=== PATIENT | female | born 1950 | race Caucasian/White ===

== ENCOUNTER → 2018-09-29 | Outpatient (CLI) | payer MEDICARE ==
--- NOTE | 2018-09-30 13:02 | CTL ---
EXAMINATION TYPE: CT Low Dose Lung DATE OF EXAM ORDERED: 09/29/2018 HISTORY: Personal history of tobacco abuse. Lung cancer screening CT DLP: 38.[address] CTDI: 1.0 mGy Automated exposure control for dose reduction was used. SCREENING VISIT: Initial COMPARISON: None TECHNIQUE: Low dose computed tomography scan was performed through the chest at 1 mm thick sections a nd reconstructed images in the coronal plane at [address] DIAGNOSTIC QUALITY: Satisfactory FINDINGS: LUNG NODULES: There is an elongated tubular density with peripheral reticulation best seen on coronal series 10 low ge 13 but measured in 2 dimensions on axial series 4 image 177 measuring up to 7 x 5 mm. In the longi tudinal dimension this measures 18 mm. On coronal imaging this appears again tubular parent is favore d to represent endobronchial mucous plugging with vague possible bronchitis seen on coronal image 14. No additional suspicious nodular densities are seen within the lungs. LUNGS: COPD: Severity: Mild Fibrosis: Severity: Biapical pleural parenchymal scarring and medial left lung base pleural parenchym al scarring Lymph nodes: Nonenlarged RIGHT PLEURAL SPACE: Effusion: None Calcification: None Thickening: None Pneumothorax: None LEFT PLEURAL SPACE: Effusion: None Calcification: None Thickening: None Pneumothorax: None HEART: Heart Size: Nonenlarged Coronary calcification: None appreciable Pericardial effusion: None OTHER FINDINGS: Upper abdomen: Cholelithiasis is incidentally seen as well as punctate nonobstructing 2 mm left renal calculus. There is a hypoattenuated ill-defined hepatic mass measuring 3.3 x 2.2 cm on image 243 of series 3. The liver appears enlarged. Bony thorax: There is partial visualization of a chondroid matrix right humeral medullary lesion like ly representing a bone infarct or enchondroma. Sclerotic lesion of the scapula is also present measur ing 1.1 cm, that may represent a bone island. Mild multilevel degenerative changes of the spine. Supraclavicular region: Unremarkable IMPRESSION: 1. Lung RADS 4A/S-findings for which additional diagnostic testing or tissue sampling is recommended . There is an elongated tubular density within the right lower lobe that is favored to represent endo bronchial mucus impaction however short-term follow-up CT is recommended in 3 months to assess for an y interval growth. Alternatively bronchoscopy could be considered or PET/CT if there is interval grow th on the subsequent follow-up short-term CT. 2. Hypoattenuated 3.3 cm hepatic mass for which three-phase CT abdomen is recommended for further erick luation. 3. Partial visualization of a chondroid matrix right humeral lesion favored to represent a bone infar ct or enchondroma however correlation with plain films is recommended. FOLLOW UP CT CHEST RECOMMENDATION: Low-dose CT in [address] LUNG RAD: Lung-Rad 4A Suspicious
== END | disposition home or self-care (01) ==
LOC: RADCTMAIN 16:25
PROVIDERS: ATTEND Internal Medicine
DX: Z12.2 Encounter for screening for malignant neoplasm of respiratory organs (principal); F17.210 Nicotine dependence, cigarettes, uncomplicated

== ENCOUNTER → 2021-12-19 | Outpatient (CLI) | payer MEDICARE ==
--- NOTE | 2021-12-19 09:46 | CT ---
EXAMINATION TYPE: CT pelvis wo con DATE OF EXAM: 12/19/2021 COMPARISON: None HISTORY: 68-year-old female M25.551, Z96.641, hip fracture x 8 months, pain TECHNIQUE: Contiguous axial scanning of the pelvis without IV contrast. Coronal and sagittal reconstr uctions performed. CT DLP: 405 mGycm Automated exposure control for dose reduction was used. FINDINGS: Uterus with calcified fibroids demonstrated. Largest calcified fibroid measuring 3.9 cm and is intram ural. Exophytic posterior fibroid measures 2.5 cm. There is some pelvic floor laxity and with laxity of the levator ani musculature. Mild to moderate prostatic calcifications distal abdominal aorta exte nding into the proximal bilateral common iliac arteries. Ovaries not well delineated due to adjacent bowel loops. Bilateral iliac vein stents are noted. Osteopenia. There is facet arthropathy lower lumbar spine. Disc bulge L4-L5 may contribute to a moder ate to severe focal spinal canal stenosis. There appears to be a L4 vertebral compression deformity w hich should be correlated clinically as to age. There is a dynamic right hip screw fixation. There is complication with nonunion across the femoral n bettye fracture. The tip of the hip screws have eroded the femoral head fracture fragment (coronal image 49) and currently abuts the lateral roof of the acetabulum where some erosion is also demonstrated, coronal image 47. IMPRESSION: 1. RIGHT HIP SCREW FIXATION COMPLICATED BY NONUNION ACROSS THE FEMORAL NECK. THERE IS CONTINUED MOTIO N AT THE FRACTURE SITE WITH THE TIPS OF THE HIP SCREWS ERODING INTO THE FEMORAL HEAD FRACTURE FRAGMEN T AND CURRENTLY ABUTTING AND SLIGHTLY ERODING THE LATERAL ROOF OF THE ACETABULUM WELL. 2. THERE APPEARS TO BE AN L4 VERTEBRAL COMPRESSION COLLAPSE PARTIALLY VISUALIZED. POSSIBLE MODERATE S NICOLAS CANAL STENOSIS AT L3-L4 AND POSSIBLE MODERATE TO SEVERE AT L4-L5.
== END | disposition home or self-care (01) ==
LOC: RADCTMAIN 08:35
PROVIDERS: ATTEND Orthopaedic Surgery
DX: T84.84XA Pain due to internal orthopedic prosthetic devices, implants and grafts, initial encounter (principal)
CPT/HCPCS: 72192; 85652; 86140

== ENCOUNTER 2022-01-11 08:48 | Day surgery (SDC) | payer MEDICARE ==
[2022-01-11 09:07] VITALS: RESP 16; TEMP 97.8
[2022-01-11 10:38] VITALS: BP 132/78; PULSE 80
--- NOTE | 2022-01-11 15:59 | US ---
EXAMINATION TYPE: US guided asp major joint, right hip DATE OF EXAM: 01/11/2022 Comparison: Correlation CT 12/19/2021 Clinical History: 71-year-old female M25.551,Z96.641,T84.84XA Procedure: 1. Ultrasound of the right hip. 2. Aspiration of the right hip with ultrasound guidance. Findings: There is underlying granulation tissue versus synovitis and joint effusion at the patient's femoral n bettye nonunion site right hip. This is targeted for aspiration. Technique: The procedure, risks, and alternatives, were discussed with the patient, who requested ramón t we proceed. The consent form was signed, and teach-back occurred. The site/side of the procedure wa s marked with a line with participation by the patient. The accompanying paperwork was verified for c onsistency. A directed history and physical exam was performed prior to the procedure. Medication rec onciliation was performed by ancillary personnel. A critical pause was performed with assisting joel rubin just prior to the procedure and the patient's identity was confirmed using 2 identifiers. Imagin g guidance was utilized to select the precise skin entry point just prior to the procedure, anterior right hip. The right hip was prepped and draped in the usual sterile fashion and local 1% lidocaine anesthesia w as instilled. Under ultrasound guidance, an 18 gauge spinal needle was introduced into the right hip joint. Ultrasound confirmed the position of the needle tip. Aspiration yielded approximately 2 mL of clear, yellow-tinged synovial fluid. This was labeled and sent for laboratory analysis. The needle was then removed. The patient tolerated the procedure well. There were no immediate complications. After the procedure, the patient's condition was unchanged. Es timated blood loss was minimal. The patient was instructed on routine postprocedure precautions, incl uding avoiding water on the area for the next 24 hours and avoiding soaking the area for the next 2 d ays. IMPRESSION: Successful ultrasound guided right hip aspiration with 2 mL of clear, yellow-tinged synovial fluid ob tained. Laboratory analysis pending.
[2022-01-11 20:40] LABS: Appearance,BF Slightly Cloudy
== END 2022-01-11 10:25 ==
LOC: RADPROMAIN 08:48
PROVIDERS: ATTEND Orthopaedic Surgery
DX: M25.451 Effusion, right hip (principal); T84.84XA Pain due to internal orthopedic prosthetic devices, implants and grafts, initial encounter; Z96.641 Presence of right artificial hip joint
CPT/HCPCS: 20611; 87070; 87075; 87102; 87205; 89050

== ENCOUNTER → 2022-01-19 | Outpatient (CLI) | payer MEDICARE ==
[2022-01-19 15:04] LABS: INR 0.9 (<1.2); Partial Thromboplastin Time 26.1 sec (22.0-30.0); Prothrombin Time 10.3 sec (9.0-12.0)
[2022-01-19 17:46] LABS: HCT 41.2 % (37.2-46.3); HGB 12.2 g/dL (12.0-15.0); MCH 26.3 pg (27.0-32.0); MCHC 29.6 g/dL (32.0-37.0); Mean Platelet Volume 12.2 fL (9.5-12.2); NRBC Per 100 WBC 0 /100 WBCS (0.0-0.0); Platelet Count 363 X 10*3/uL (140-440); RBC 4.63 X 10*6/uL (4.10-5.20); RDW 16.2 % (11.5-14.5); WBC 6.54 X 10*3/uL (4.50-10.00)
[2022-01-19 18:11] LABS: African American GFR (CKD) 111.6 (60.0-200.0); Albumin 4.9 g/dL (3.8-4.9); Albumin/Globulin Ratio 1.92 (1.60-3.17); Anion Gap 13.3 mmol/L (10.00-18.00); BUN/Creat Ratio 17.81 Ratio (12.00-20.00); Blood Urea Nitrogen 9.6 mg/dL (9.0-27.0); Calcium 10.4 mg/dL (8.7-10.3); Carbon Dioxide 25.1 mmol/L (20.0-27.5); Globulin 2.5 g/dL (1.6-3.3); Non-African American GFR(CKD) 96.3 (60.0-200.0); Potassium 4.9 mmol/L (3.5-5.5); Total Bilirubin 0.5 mg/dL (0.30-1.20); Total Protein 7.4 g/dL (6.2-8.2)
== END | disposition home or self-care (01) ==
LOC: LABWHC1 12:04
PROVIDERS: ATTEND Orthopaedic Surgery
DX: Z01.812 Encounter for preprocedural laboratory examination (principal); M16.11 Unilateral primary osteoarthritis, right hip
CPT/HCPCS: 36415; 80053; 85027; 85610; 85730; 87070; 93005

== ENCOUNTER 2022-01-24 13:04 | Inpatient (IN) | payer MEDICARE ==
[~2022-01-24 13:04] MED LIST: ACETAMINOPHEN TAB 500 MG TAB PO PRN; DEXAMETHASONE SOD PHOSPHATE 10 MG/ML 1 ML VIAL IV PRN; DEXAMETHASONE SOD PHOSPHATE 4 MG/ML 1 ML VIAL IV ONE; DOCUSATE 100 MG CAP PO PRN; FAMOTIDINE 20 MG/2 ML VIAL IVP PRN; HYDROmorphone 0.5 MG/0.5 ML SYRINGE IVP PRN; KETOROLAC 15 MG/ML 1 ML VIAL IVP PRN; LIDOCAINE 1% (10MG/ML) FOR IV START INTRADERMA PRN; MIDAZOLAM 2 MG/2 ML VIAL IV PRN; ONDANSETRON 4 MG/2 ML VIAL IVP ONE; ONDANSETRON 4 MG/2 ML VIAL IVP PRN; TRANEXAMIC ACID IN NACL,ISO-OS 1,000 MG in SALINE 1 100ML.BAG IVPB PRN; oxyCODONE ER 10 MG TAB.ER.12H PO PRN
[2022-01-24] MEDS ORDERED: LACTATED RINGERS 1,000 ML IV ONE ×3 (13:45→19:44)
[2022-01-24] MEDS ORDERED: PROPOFOL 10 MG/ML 20 ML VIAL IV ONE (16:28)
[2022-01-24] MEDS ORDERED: PHENYLEPHRINE-0.9% NACL SYG 1,000 MCG/10 ML SYRINGE ONE (16:28)
[2022-01-24] MEDS ORDERED: ALBUMIN HUMAN 5% (12.5gm) 250 ML BOTTLE IVPB ONE (16:28)
[2022-01-24] MEDS ORDERED: NEOSTIGMINE 1 MG/ML 10 ML VIAL ONE (16:28)
[2022-01-24] MEDS ORDERED: MIDAZOLAM 2 MG/2 ML VIAL ONE (16:28)
[2022-01-24] MEDS ORDERED: GLYCOPYRROLATE 0.2 MG/ML 2 ML VIAL ONE (16:28)
[2022-01-24] MEDS ORDERED: ROCURONIUM 10 MG/ML (5 ML VIAL) IV ONE (16:28)
[2022-01-24] MEDS ORDERED: LIDOCAINE 2% INJ 20 MG/ML (2 ML VIAL) ONE (16:28)
[2022-01-24] MEDS ORDERED: fentaNYL (PF) 50 MCG/ML 2 ML AMP ONE (16:28)
[2022-01-24] MEDS ORDERED: TRANEXAMIC ACID IN NACL,ISO-OS 1,000 MG/100 ML BAG ONE (16:28)
[2022-01-24] MEDS: ROPIVACAINE 246.25 MG, EPINEPHrine 0.5 MG, KETOROLAC (30 mg/mL) 30 MG, cloNIDine HCL/PF... MISCELLANE PRN ×10 (17:25→20:57)
[2022-01-24] MEDS ORDERED: VANCOMYCIN 1,000 MG VIAL MISCELLANE ONE (20:57)
--- NOTE | 2022-01-24 21:42 | FL ---
Intraoperative/procedural fluoroscopic services were provided. Total fluoroscopy time is 69 seconds w ith a total of 5 submitted images to PACS. Please see the operative/procedural note for further detai ls.
[2022-01-24] MEDS ORDERED: ONDANSETRON 4 MG/2 ML VIAL IVP PRN (21:53)
[2022-01-24] MEDS ORDERED: NALOXONE 0.4 MG/ML 1 ML VIAL IV PRN (21:53)
[2022-01-24] MEDS ORDERED: HYDROcodone/APAP 5-325MG 1 EACH TAB PO PRN (21:53)
[2022-01-24] MEDS ORDERED: HYDROmorphone 0.5 MG/0.5 ML SYRINGE IVP PRN ×3 (21:53)
[2022-01-24] MEDS ORDERED: hydrOXYzine pamoate 25 MG CAP PO PRN (21:53)
--- NOTE | 2022-01-24 22:01 | P.OP ---
Date of Procedure: 01/24/22 Preoperative Diagnosis: 1. Failed right hip fracture ORIF 2. Right hip osteoarthritis 3. Severe Osteopenia 4. Prolonged immobility and non-ambulatory status 5. Multiple Sclerosis 6. History of DVT/PE Postoperative Diagnosis: Same Procedure(s) Performed: 1. Right direct anterior total hip arthroplasty 2. Removal of hardware, right hip 3. Application of negative pressure dressing, incisional wound VAC (<50 sq cm), right hip (incision measured 15-cm) Implants: 1. [employer] Trident X3 36-mm polyethylene liner 2. [place] Accolade C Size #5 Femoral Stem, Standard Offset 3. Biolox delta femoral head, 36mm, +7.5 neck Anesthesia: GETA Surgeon: Gabino Jarrett Cut Out And Marking Machine Operator #1: Duke Peace Estimated Blood Loss (ml): 400 IV fluids (ml): 2,300 Urine output (ml): 230 Pathology: other (Multiple deep cultures) Condition: stable Disposition: PACU Indications for Procedure: I met with Mary preoperatively for a second opinion about her right hip. She underwent and ORIF of her right proximal femur ~14 months ago. She went on to develop hardware failure with lag screw cut and and collapse. As a result she was left with a shortened right leg, an inability to ambulate and severe right hip pain. Her xrays showed a Synthes femoral neck fracture system with lag screw cut out and erosion of the acetabulum from the lag screw. She also had SEVERE osteopenia. In addition to her hip pathology, she has MULTIPLE other medical co- morbidities including multiple sclerosis, DVT, PE, non-ambulatory status and prolonged immobility. We discussed continued observation which we both felt was not possible given the collapse of her fracture, damage from the lag screw and severe pain. We discussed different surgical options including hemiarthoplasty, total hip replacement, and hardware removal and performing a Girdlestone procedure. We decided to an attempt a total hip replacement with the possiblity of performing a hemiarthoplasty. She understands that she is at a VERY HIGH RISK of having a complication particularly fracture, hip dislocation and infection. She understands the possibility of being made worse. She also understands that if she develops a complication she may ultimately require a Girdlestone procedure. After having a very blunt discussion about the high risk of complication, the patient and her family elected to proceed with surgery. I spent a significant amount of time counseling the patient and her family about the risks and the procedure in general. They were well informed and aware of the significant risks in proceeding with surgery. I had a long discussion with the patient in the office on the potential risks and complications of an elective total hip replacement through a direct anterior approach. Risks discussed include, but are certainly not limited to, risks from anesthesia, superficial infection requiring local wound care or antibiotics, deep pop-prosthetic joint infection and the treatment required to eradicate infection, intraoperative fracture, postoperative periprosthetic fracture, damage to local blood vessels or nerves particularly the lateral femoral cutaneous nerve, delayed wound healing requiring local wound care or possibly surgical debridement, hip dislocation, leg length discrepancy, soft tissue irritation around the total hip implant such as iliopsoas tendinitis or trochanteric bursitis, wear and osteolysis from the implants, squeaking or audible noises, groin pain, thigh pain, heterotopic ossification, stiffness, aseptic loosening of the implants, dissatisfaction with surgical outcome, need for revision surgery, DVT, PE, swelling of the operative extremity, acute coronary event, stroke, failure to thrive, and possibly loss of life or limb. The patient understands that while these are the most common complications after an elective hip replacement there are certainly other less common complications possible. They were given ample time to ask questions regarding the potential complications of a hip replacement. Following our discussion the patient provided their verbal and written consent to go forward with an elective total hip replacement. Operative Findings: Preoperative exam under anesthesia: Significant leg length discrepancy with the right operative limb 2-3 cm shorter than the left Hardware removal: This distal interlocking screw of the plate/screw construct was cold-welded to the plate and couldn't be removed with screw drivers. The screw was removed by removing the screw head with a metal cutting tung. Total hip replacement: The patient had such severe osteopenia that almost made performing hip arthroplasty impossible. Retractors were extremely difficult to place as they were fracturing her bone. When placing a metal acetabular component, the anterior wall of the acetabulum. There were multiple fractures in the proximal femur, including from her prior injury, plate removal, trying to expose the femur and placing retractors. Her bone quality was so poor I didn't feel that placing cables and/or a claw plate over the trochanter would offer any meaningful stability. Post-op: The hip felt stable and her leg length discrepancy was improved, but s till short on the right. Sciatic nerve function was intact post-op. Description of Procedure: The patient was identified in the preoperative holding area and the correct hip was marked with my initials. I reviewed the procedure and consent with the patient. All of their questions were answered. The patient was then brought back into the operating room by anesthesia. While on the [facility] anesthesia was administered by the anesthesia team. Preoperative antibiotics and tranexamic acid were also given. After the patient was under anesthesia I examined their ankles to determine their preoperative leg length discrepancy. The skin over the anterior aspect of the hip was shaved to remove hair over the site of planned incision. Both feet and ankles were padded with webril and boots for the [place] were applied. The patient was then carefully transferred onto the [place] table. A perineal post was immediately placed. The arms were placed on arm holders and were well-padded. Both boots were secured to the spars on the [place] table. The patient was positioned so that the pelvis was centered over the post. Nonsterile drapes were applied. A timeout was performed identifying the correct patient, operative extremity, and procedure. At this point fluoroscopy was brought in to take preoperative images of the pelvis and operative hip. Using the standing AP pelvis from the office as a template, a comparable image was obtained with fluoroscopy. A metallic bar was used to create a bi-ischial line for use as a reference to leg length adjustments during the procedure. Global offset was also measured on both the operative and nonoperative leg. Fluoroscopy was then brought out and a pre-scrub using a chlorhexidine scrub brush was performed. The operative limb was then prepped and draped in the standard sterile fashion. Attention was first turned to removing the hardware in her hip. Her prior scar over the lateral proximal femur was identified and an incision was made over the scar with a scalpel. Dissection was carried down to the IT band which was incised with bovie. The plate was immediately identified over the lateral femur and was exposed. I initially attempted to remove the distal locking screw, but was unable to as the screw appeared to be cold-welded to the plate. I then removed the proximal lag screw and sleeve from the barrel of the plate. I then again attempted to remove the distal screw, but was unable to. I used both a handheld screw catering truck driver and power, but the screw wouldn't move. I then placed sterile sponges within the incision and sterile lubricating gel (to catch metal fragments) and used a metal cutting bur to remove the screw head. After some difficulty, I was able to remove the screw head and plate. I was then able to g rab the remaining screw and remove it. On palpation of the proximal femur, the posterior aspect of the greater trochanter there appeared to be a fracture through the barrel site from the plate. The wound was left open and packed with a sponge. Attention was turned to the total hip replacement. An anterior longitudinal incision was made lateral and distal to the ASIS. The skin and subcutaneous tissues were incised sharply. The underlying tensor fascia was identified and incised in its midportion. The fascia was dissected free from the underlying muscle and the muscle belly was retracted. A blunt tipped cobra retractor was placed over the superior neck under the muscle fibers of the gluteus minimus. The deep enveloping fascia of the tensor was incised. The anterior leash of vessels were then identified and cauterized. The fascia between the rectus and the capsule was then incised and the pre-capsular fat was excised. A second Cobra was placed inferior to the neck. The interval between the rectus and iliocapsularis and the hip capsule was developed and a retractor was placed carefully over the anterior rim of the acetabulum. A T-shaped anterior capsulotomy was performed. The superior capsular leaflet was left in place in the inferior capsular flap was excised. The Cobra retractors were placed intracapsularly. On inspection, there was a chronic non-union and collapse of the femoral head. There was a small portion of the femoral head that was easily removed and passed off to the back table. There were multiple other small pieces of bone fragments in the acetabulum which were removed. There was also diffuse scar tissue that was debrided. There was no sign of infection. The acetabulum was exposed and on inspection, there was a small defect in the supero-lateral acetabulum from the screw and diffuse arthritic changes. On inspection of the socket there appeared to be intact anterior and posterior dalton with a good rim of circumferential bone. Due to the arthritis and damage from the screw, I decided to place an acetabular component. I initially reamed with a 43-mm reamer and the bone quality was found to be incredibly poor, but there was still an intact rim. I very gently went in with a 46-reamer and touched the rim. Both dalton felt intact, but the bone quality was very poor. I placed a 46-mm trial, but there was no bite. I then placed a 48-mm trial which was felt to have a decent bite. I opened a 48-mm cup and gently tried to impact the cup, but was unable to get a bite. On inspection, the dalton felt intact. I then tried both a 50 and 52 trial. The 52 trial felt relatively stable and was fully seated to the dome. I came in with x-ray and the trial appeared fully seated. I tried to place a 52-mm cup and as the cup was inserted, but before impacting, the anterior wall fractured due to the incredibly poor bone quality. After removing the cup, the anterior wall was found to be fracture and the cancellous bone in the socket was found to be incredibly poor. With the underlying bone quality and defect I elected to cement a liner as I felt this was the best option for her. I used a technique learned in my fellowship where I contoured a pelvic recon plate to match the acetabulum and act as an anti- protrusio device, securing the plate with screws. I then used a bur to roughen the back of a 36-mm liner. Cement was then mixed. I placed cement on the back of the liner and in the acetabulum. The liner was then inserted into the socket and held in appropriate version and inclination until the cement hardened. All extra cement was removed. Attention was then turned to the femur. The remnant dorsal lateral capsule was excised. The proximal femur was found to be very stiff difficult to mobilize. I attempted to release the femur to allow broaching. A bone hook was used to confirm appropriate translation of the trochanter away from the acetabulum. The leg was then extended and adducted and the bone hook was used to elevate the femur for broaching. On inspection of the patient's proximal femur, they appeared to have incredibly poor bone quality, so poor that even gently placement of retractors would fracture her femur. There was a lateral fracture of the proximal femur and a complex fracture of the greater trochanter. Her bone quality was so incredibly poor that I didn't feel that a cable to claw plate would give any extra fixation and would likely fail. A box osteotome and blunt tipped canal sound was then utilized to gain access to the femoral canal. We then sequentially broached the femur in appropriate anteversion until torsional stability was achieved and the implant was felt to have reached the appropriate size to allow trialing. A trial neck and head were then placed onto the broach and the hip was atraumatically reduced under direct visualization. External rotation to 90 was performed to assess stability. Fluoroscopy was brought in. An AP and lateral fluoroscopic image of the proximal femur was obtained to assess position and fill of the trial broach. The hip was then carefully dislocated, the proximal femur was exposed, and the trial implants were removed. The proximal femur was then prepared for cementing. The canal was thoroughly irrigated with pulsatile lavage to remove blood and marrow contents. A cement restrictor was placed to a depth just distal to the tip of the final implant. Epinephrine-soaked gauze was then packed into the proximal femur. 2 bags of cement were then mixed using a centrifuge and placed into a cement gun. Anesthesia was notified that cementing was about to commence to make sure the patient was appropriately ventilated and hydrated. Once the cement had reached appropriate consistency, the cement gun was used to fill the canal in a retrograde fashion starting at the restrictor. Cement was then pressurized into the canal with a blue tipped refractory tile helper. The stem was then carefully introduced into the cement taking care to guide the implant into appropriate version. The stem was held in position until the cement had fully set. All extra cement was removed while the cement was hardening. The trunnion was cleansed and the final head was tapped into place to engage the Downs taper. The acetabulum was irrigated and visualized to be free of debris. The hip was carefully reduced. Stability was checked clinically with external rotation to 90 and there was no evidence of instability. Final fluoroscopic images were taken. The wound was then thoroughly irrigated and soaked with a dilute Betadine rinse for 3 minutes. 3 L of sterile saline was irrigated through the wound using pulsatile lavage. Local anesthetic cocktail was injected into the soft tissues around the surgical field. 2 grams of vancomycin powder was placed in the wound. A deep drain was placed. The wound was then closed in layers including both the lateral wound and the direct anterior hip wound. A sterile dressing was placed over the surgical incision and drain site. The direct anterior hip incision was covered with a Prevena wound VAC given the patients poor overall health and complicated procedure. The drapes were taken down and the patient was carefully transferred off of the [place] table. Following removal of the boots the leg lengths felt acceptable. The patient was then taken to recovery room having tolerated the procedure well. Duke Peace PA-C was required as a skilled environmental services assistant for patient positioning, surgical exposure, retraction, placement of implants, and closure of the surgical wound. PLAN: The patient can toe-touch weight bear on the operative extremity. 2 doses of postoperative antibiotics followed by regional intermodal truck driver low dose antibiotic suppression. DVT prophylaxis with Eliquis given her history of DVT/PE. Physical therapy for gait training. Discontinue drain postoperative day #1 if output is less than 100 mL per shift.
[2022-01-24] MEDS: LACTATED RINGERS 1,000 ML IV SCH ×2 (23:08→23:25)
[2022-01-25] MEDS ORDERED: METOCLOPRAMIDE 5 MG/ML 2 ML VIAL IVP PRN (00:14)
[2022-01-25 06:56] LABS: Basophils % (A) 0 %; Eosinophils % (A) 0 %; HCT 24.8 % (34.0-46.0); HGB 7.7 gm/dL (11.4-16.0); Hypochromasia Marked; Lymphocytes # (A) 1.2 k/uL (1.0-4.8); Lymphocytes % (A) 7 %; MCH 27.5 pg (25.0-35.0); MCHC 30.9 g/dL (31.0-37.0); MCV 89.2 fL (80.0-100.0); Mean Platelet Volume 8.1; Monocytes # (A) 0.8 k/uL (0-1.0); Monocytes % (A) 5 %; Neutrophils # (A) 13.7 k/uL (1.3-7.7); Neutrophils % (A) 87 %; Platelet Count 307 k/uL (150-450); RBC 2.78 m/uL (3.80-5.40); WBC 15.7 k/uL (3.8-10.6)
[2022-01-25] MEDS ORDERED: MAGNESIUM HYDROXIDE 2,400 MG/10 ML CUP PO PRN ×2 (09:47→09:50)
[2022-01-25] MEDS ORDERED: bisacodyL 10 MG SUPP RECTAL PRN (09:47)
[2022-01-25] MEDS ORDERED: ALBUTEROL NEBULIZED 2.5 MG/3 ML INHALATION PRN (09:47)
--- NOTE | 2022-01-25 11:17 | P.PN ---
Subjective Progress Note Date: 01/25/22 This patient is a 71- year old female who is status-post removal of hardware right hip and right direct anterior total hip arthroplasty on 01/24/22. Today is post-operative day #1. The patient is examined bedside. She is up to the bedside chair. She states she is experiencing minimal pain in the right hip. She is doing well with no complaints at this time. She has worked with physical therapy this morning. Vital signs are stable. Objective - Vital Signs Vital signs: Vital Signs Temp 97.4 F L 01/25/22 08:00 Pulse 105 H 01/25/22 08:00 Resp 18 01/25/22 08:00 BP 100/64 01/25/22 08:00 Pulse Ox 96 01/25/22 08:00 FiO2 Intake & Output 01/24/22 01/25/22 01/25/22 18:59 06:59 18:59 Intake Total 0 750 Output Total 880 Balance 0 -130 Weight 56.36 kg 56.36 kg Intake: IV 2049 750 Output: Urine 480 Estimated Blood Loss 400 Other: Voiding Method Indwelling Catheter - Exam On examination, patient is sitting up in a bedside chair in no apparent distress. She is alert and oriented 3. On inspection of her right hip, there is a Prevena wound VAC in place that has a good seal at this time. Hemovac drain in place. There is mild swelling of the thigh, thigh soft and compressible. Motor and sensory function is intact of the right lower extremity. Right lower extremity warm and well perfused. - Labs CBC & Chem 7: 01/25/22 06:35 Labs: Abnormal Lab Results - Last 24 Hours (Table) 01/25/22 Range/Units 06:35 WBC 15.7 H (3.8-10.6) k/uL RBC 2.78 L (3.80-5.40) m/uL Hgb 7.7 L (11.4-16.0) gm/dL Hct 24.8 L (34.0-46.0) % MCHC 30.9 L (31.0-37.0) g/dL Neutrophils # 13.7 H (1.3-7.7) k/uL Assessment and Plan Assessment: Status-post removal of hardware right hip and right direct anterior total hip arthroplasty on 11/16/22. Post-operative day #1. Plan: - Toe-touch weightbearing operative extremity with a walker. - Physical therapy for gait and balance training. - 2 doses postoperative IV antibiotics. - Pain management as needed. - Resume Eliquis for DVT prophylaxis. - Leave hemovac drain in place. Leave Prevena wound vac and operative dressings in place. - Internal medicine consulted for pop-operative medical management . - Case management consulted for discharge planning. Anticipate discharge back to [facility].
[2022-01-25] MEDS: LACTATED RINGERS 1,000 ML IV SCH ×3 (11:48→20:54)
[2022-01-25] MEDS: APIXABAN 2.5 MG TABLET PO SCH ×2 (14:44→20:53)
--- NOTE | 2022-01-25 15:10 | P.CONS ---
History of Present Illness - Reason for Consult Consult date: 01/25/22 Medical management postop right hip arthroplasty - History of Present Illness This is a 71-year-old female who was admitted under orthopedic services underwent right hip total arthroplasty along with removal of right hip hardware with anterior approach postop day #1. Patient is currently sitting up in the chair reporting to some minimal pain although currently managed. Patient does have a Hemovac drain noted with serous drainage otherwise the right hip surgical site appears dry and intact with some surrounding swelling and no erythema noted. Groin with some minimal bruising noted although soft and palpable on the right. Patient reports she lives at [facility] and will be returning there when stable and discharged. WBC was slightly elevated at 15.7 and hemoglobin is 7.7. Recommend closely monitoring CBC and will follow-up with repeat labs in a.m. Patient was taking Eliquis and will resume. Patient reports her primary care provider is Dr. Sanchez and has a past medical history of COPD, deep vein thrombosis, memory impairment, neurological disorders including multiple sclerosis and history of fall with right femur fracture in December 2021. Patient denies illicit drug use or alcohol and reports she was a former smoker. Per. Home medications were reviewed and resumed and recommend continue ashley toring vital signs closely as patient has been postoperatively slightly hypotensive. Patient was maintained on lactated Ringer's and will decrease the rate and follow-up with repeat labs in a.m. WBC this morning is elevated at 15.7 likely reactive. Patient is afebrile denies chest pain or shortness of breath or cough and denies any difficulty urinating. Patient continues with an indwelling Sexton catheter for now which will likely be discontinued this evening or tomorrow. Review Of Systems: Constitutional: No fever, no chills, no night sweats. No weight change. No weakness, fatigue or lethargy. No daytime sleepiness. EENT: No headache. No blurred vision or double vision, no loss of vision. No loss of Hearing, no ringing in the ears, no dizziness. No nasal drainage or congestion. No epistaxis. No sore throat. Lungs: No shortness of breath, cough, no sputum production. No wheezing. Cardiovascular: No chest pain, no lower extremity edema. No palpitations. No paroxysmal nocturnal dyspnea. No orthopnea. No lightheadedness or dizziness. No syncopal episodes. Abdominal: No abdominal pain. No nausea, vomiting. No diarrhea. No constipation. No bloody or tarry stools.. No loss of appetite. Genitourinary: No dysuria, increased frequency, urgency. No urinary retention. Musculoskeletal: No myalgias. No muscle weakness, no gait dysfunction, no frequent falls. No back pain. No neck pain. Reports right hip pain Integumentary: No wounds, no lesions. No rash or pruritus. No unusual bruising. No change in hair or nails. Neurologic: No aphasia. No facial droop. No change in mentation. No head injury. No headache. No paralysis. No paresthesia. Psychiatric: No depression. No anxiety. No mood swings. Endocrine: No abnormal blood sugars. No weight change. No excessive sweating or thirst. No cold intolerance. PHYSICAL EXAMINATION: GENERAL: The patient is alert and oriented x4, Well developed, well nourished. HEENT: Pupils are round and equally reacting to light. EOMI. no scleral icterus. No conjunctival pallor. Normocephalic, atraumatic. No pharyngeal erythema. No thyromegaly. CARDIOVASCULAR: S1 and S2 muffled PULMONARY: diminished breath sounds bilaterally with no wheezing or rhonchi noted. ABDOMEN: soft. Nontender on exam. non-distended, normoactive bowel sounds. No palpable organomegaly. MUSCULOSKELETAL: No joint swelling or deformity. EXTREMITIES: No cyanosis, clubbing, or pedal edema. Right hip surgical dressing anterior is dry and intact with some surrounding swelling and no erythema noted. There is a small amount of bruising in the groin on the right that is soft and palpable on exam NEUROLOGICAL: Gross neurological examination did not reveal any focal deficits. Diffuse weakness SKIN: No rashes. Assessment: Status post right total hip arthroplasty with removal of previous right hip hardware postop day #1 Mild leukocytosis, most likely reactive, secondary to above History of fall with a right femur fracture acquiring surgery History of DVTs, currently on eliquis History of multiple sclerosis COPD, not in exacerbation History of memory impairment Former smoker GI prophylaxis DVT prophylaxis Full code Plan: Recommend to continue with current medications and management per orthopedic services. patient is postop right total hip arthroplasty with removal of old hardware anterior approach day #1. Patient continues with Hemovac and wound VAC dressing with a tight seal and serous drainage noted in the Hemovac. Patient reports some mild discomfort although currently managed with the current pain medications. Recommend pain management per orthopedic services. Patient was taking oral anticoagulation which has been resumed. WBC mildly elevated recommend repeat labs. Patient is not showing any evidence of infection as patient is afebrile denies chest pain, shortness of breath, or cough, denies any dysuria. Patient to continue with indwelling Sexton catheter for now and will likely removed later this evening or tomorrow. Patient will be returning to [facility] for continued PT/OT therapy once stabilized and discharged. Hemoglobin was 7.7 and do recommend a CBC in the morning and transfuse if less than 7. Patient was maintained on lactated Ringer's at 100 mL per hour and will decrease the rate. Patient is slightly hypotensive recommend monitoring vital signs closely. Systolic blood pressure was 90. Patient has been seen and evaluated by PT/OT therapy recommending returning to rehab. Appropriate home medications have been reviewed and resumed. Patient denies passing gas or having bowel movements yet and is continued on indwelling Sexton catheter and urine is clear and yellow. Patient tolerating diet with no reports of nausea or vomiting noted. Incentive spirometer at the bedside and encourage the patient to continue using at least 10 times every hour while awake. We will continue to follow during hospitalization. Thank you kindly for this consultation. The impression and plan of care has been dictated by Elisha Bravo, nurse practitioner as directed. Dr. Tyler MD I have performed a history and examination and MDM of this patient, discussed the same with the dictator, and agree with the dictator's assessment and plan as written ,documented as a scribe. Based on total visit time, I have performed more than 50% of the visit. Any additional findings or plans will be noted. Past Medical History Past Medical History: COPD, Deep Vein Thrombosis (DVT), Memory Impairment, Neurologic Disorder, Pneumonia Additional Past Medical History / Comment(s): multiple sclerosis, Hx of fall with fx right femur fx with surgery & has been at [facility] since then., bozena lift used to transfer. hx fall 01/01/22 History of Any Multi-Drug Resistant Organisms: None Reported Past Surgical History: Orthopedic Surgery Additional Past Surgical History / Comment(s): right hip surgery, venous wall s tent right and left leg by Dr Gaytan, Breast bx, colonoscopy., cataracts Past Anesthesia/Blood Transfusion Reactions: No Reported Reaction Past Psychological History: No Psychological Hx Reported Smoking Status: Former smoker Past Alcohol Use History: None Reported Additional Past Alcohol Use History / Comment(s): quit smoking one year ago less than a pack a day for approximately 50 years Past Drug Use History: None Reported Medications and Allergies Home Medications Medication Instructions Recorded Confirmed Type Apixaban [Eliquis] 2.5 mg PO BID 12/28/21 01/24/22 History Acetaminophen [Tylenol] 650 mg PO Q6HR PRN 01/22/22 01/24/22 History Albuterol Inhaler [Ventolin Hfa 1 - 2 puff INHALATION Q6H PRN 01/22/22 01/24/22 History Inhaler] Cyclobenzaprine [Flexeril] 5 mg PO BID PRN 01/22/22 01/24/22 History Magnesium Hydroxide [Milk of 1 dose PO DIRECTED PRN 01/22/22 01/24/22 History Magnesia Concentrate] bisacodyL [Dulcolax] 10 mg RECTAL DAILY PRN 01/22/22 01/24/22 History Allergies Allergy/AdvReac Type Severity Reaction Status Date / Time amoxicillin Allergy Nausea & Verified 01/24/22 13:36 Vomiting Iodinated Contrast Media Allergy difficulty Verified 01/24/22 13:36 breathing heparin AdvReac Unknown Verified 01/24/22 13:57 Physical Exam Vitals: Vital Signs Temp Pulse Pulse Resp BP BP Pulse Ox 01/25/22 08:00 97.4 F L 105 H 18 100/64 96 01/25/22 02:00 97.7 F 93 17 107/73 98 01/25/22 01:00 99 107/77 98 01/25/22 00:45 106 H 105/73 96 01/25/22 00:30 122 H 106/76 97 01/25/22 00:15 101 H 109/77 98 01/25/22 00:00 111 H 94/70 97 01/24/22 23:45 101 H 100/71 96 01/24/22 23:30 112 H 97/66 96 01/24/22 23:15 124 H 96/67 98 01/24/22 23:00 121 H 96/61 98 01/24/22 22:45 97.4 F L 120 H 16 87/61 98 01/24/22 22:21 82 16 101/57 100 01/24/22 22:06 105 H 16 103/63 100 01/24/22 21:51 98.6 F 94 16 113/72 98 01/24/22 13:30 97.8 F 90 15 142/86 99 Intake and Output 01/24/22 01/25/22 01/25/22 22:59 06:59 14:59 Intake Total 2600 Output Total 630 250 Balance 1970 -250 Intake: IV 2600 Output: Urine 230 250 Estimated Blood Loss 400 Other: Voiding Method Indwelling Catheter Weight 56.36 kg Results CBC & Chem 7: 01/25/22 06:35 Labs: Abnormal Lab Results - Last 24 Hours (Table) 01/25/22 Range/Units 06:35 WBC 15.7 H (3.8-10.6) k/uL RBC 2.78 L (3.80-5.40) m/uL Hgb 7.7 L (11.4-16.0) gm/dL Hct 24.8 L (34.0-46.0) % MCHC 30.9 L (31.0-37.0) g/dL Neutrophils # 13.7 H (1.3-7.7) k/uL Assessment and Plan Time with Patient: Less than 30
[2022-01-25] MEDS: HYDROcodone/APAP 5-325MG 1 EACH TAB PO PRN (18:02)
[2022-01-26] MEDS: HYDROcodone/APAP 5-325MG 1 EACH TAB PO PRN ×2 (06:26→15:43)
[2022-01-26] MEDS: APIXABAN 2.5 MG TABLET PO SCH (08:33)
[2022-01-26 10:54] LABS: Basophils % (A) 1 %; Eosinophils % (A) 0 %; HCT 20.3 % (34.0-46.0); Hypochromasia Moderate; Lymphocytes # (A) 1.3 k/uL (1.0-4.8); Lymphocytes % (A) 18 %; MCH 27.5 pg (25.0-35.0); MCHC 31.1 g/dL (31.0-37.0); MCV 88.4 fL (80.0-100.0); Mean Platelet Volume 8.7; Monocytes # (A) 0.6 k/uL (0-1.0); Monocytes % (A) 8 %; Neutrophils # (A) 5.5 k/uL (1.3-7.7); Neutrophils % (A) 72 %; Platelet Count 231 k/uL (150-450); RDW 15.4 % (11.5-15.5); WBC 7.6 k/uL (3.8-10.6)
[2022-01-26 10:55] LABS: HGB 6.3 gm/dL (11.4-16.0)
[2022-01-26 11:00] LABS: African American GFR (CKD) >90 (>60 ml/min/1.73 sqM); Anion Gap 4 mmol/L; Blood Urea Nitrogen 20 mg/dL (7-17); Calcium 8.2 mg/dL (8.4-10.2); Carbon Dioxide 24 mmol/L (22-30); Chloride 104 mmol/L (98-107); Glucose 119 mg/dL (74-99); Non-African American GFR(CKD) >90 (>60 ml/min/1.73 sqM); Potassium 3.9 mmol/L (3.5-5.1); Sodium 132 mmol/L (137-145)
[2022-01-26 11:46] LABS: Lymphocytes # (M) 1.67 k/uL (1.0-4.8); Monocytes # (M) 0.61 k/uL (0-1.0); Neutrophils # (M) 5.32 k/uL (1.3-7.7); Neutrophils % (M) 70 %; Nucleated Red Blood Cells 0 /100 WBC (0-0); Total Cells Counted 100
[2022-01-26 11:47] LABS: Poikilocytosis (M) Present; Toxic Granulation Present
--- NOTE | 2022-01-26 12:52 | P.DS ---
Providers Date of admission: 01/26/22 12:10 Expected date of discharge: 01/26/22 Attending physician: Gabino Jarrett Consults: 01/24/22 21:53 Consult Physician Routine Consulting Provider: Sarita Cam Consult Reason/Comments: medical management Do you want consulting provider notified?: Yes Primary care physician: [facility] Course: This is a 71-year-old female who underwent a hardware removal right hip and direct anterior right total hip arthroplasty on 01/24/[address] Jarrett. The patient is seen preoperatively by Dr. Juarez and cleared for surgery. Patient is admitted to [facility] on for right hip hardware removal and direct anterior right total hip arthroplasty. The procedures performed without complication or sequelae. The patient is doing well postoperatively. Labs and vital signs are stable on day of discharge. Patient is examined bedside this morning with Dr. Jarrett. She states the pain in her right hip is well-controlled at this time. She has been up with physical therapy and is currently up to the bedside chair. Her Sexton catheter was removed this morning. She overall feels well. Hemoglobin resulted as 6.3 this morning, per internal medicine patient will receive one unit of PRBCs, then she is cleared for discharge to rehab. On examination, patient is sitting up in the bedside chair. Inspection of the right hip, there is a Prevena wound VAC in place. Hemovac drain was removed bedside this morning. Mild swelling of the thigh, thigh soft and compressible. Motor and sensory function is intact of the right lower extremity. Right lower extremity warm and well-perfused. Patient is discharged to [facility] today in good condition, pending medical clearance today. Patient should follow-up in the office at [facility] on Saturday01/30/22. Please see med rec for accurate list of discharge medications. Plan - Discharge Summary New Discharge Prescriptions: New Docusate [Colace] 100 mg PO BID #60 capsule Doxycycline Monohydrate 100 mg PO BID 14 Days #28 cap HYDROcodone/APAP 5-325MG [[place] 5-325] 1 - 2 tab PO Q6HR PRN 7 Days #30 tab PRN Reason: Pain Omeprazole 40 mg PO DAILY 30 Days #30 cap No Action Apixaban [Eliquis] 2.5 mg PO BID bisacodyL [Dulcolax] 10 mg RECTAL DAILY PRN PRN Reason: if no results from mom Cyclobenzaprine [Flexeril] 5 mg PO BID PRN PRN Reason: Muscle Spasm Albuterol Inhaler [Ventolin Hfa Inhaler] 1 - 2 puff INHALATION Q6H PRN PRN Reason: Shortness Of Breath Or Wheezing Acetaminophen [Tylenol] 650 mg PO Q6HR PRN PRN Reason: fever/pain Magnesium Hydroxide [Milk of Magnesia Concentrate] 1 dose PO DIRECTED PRN PRN Reason: no bm for 2 days Discharge Medication List Apixaban [Eliquis] 2.5 mg PO BID 12/28/21 [History] Acetaminophen [Tylenol] 650 mg PO Q6HR PRN 01/22/22 [History] Albuterol Inhaler [Ventolin Hfa Inhaler] 1 - 2 puff INHALATION Q6H PRN 01/22/22 [History] Cyclobenzaprine [Flexeril] 5 mg PO BID PRN 01/22/22 [History] Magnesium Hydroxide [Milk of Magnesia Concentrate] 1 dose PO DIRECTED PRN 01/22/22 [History] bisacodyL [Dulcolax] 10 mg RECTAL DAILY PRN 01/22/22 [History] Docusate [Colace] 100 mg PO BID #60 capsule 01/26/22 [Rx] Doxycycline Monohydrate 100 mg PO BID 14 Days #28 cap 01/26/22 [Rx] HYDROcodone/APAP 5-325MG [[place] 5-325] 1 - 2 tab PO Q6HR PRN 7 Days #30 tab 01/26/22 [Rx] Omeprazole 40 mg PO DAILY 30 Days #30 cap 01/26/22 [Rx] Follow up Appointment(s)/Referral(s): Shruthi Mancini, [NON-STAFF] - As Needed Gabino Jarrett MD [Medical Doctor] - 1 Week Activity/Diet/Wound Care/Special Instructions: Toe touch weight bearing operative extremity with a walker. Keep Prevena wound vac in place until follow-up appointment in the office. Take pain medication as needed. Take doxycycline as prescribed. Resume Eliquis for blood clot prevention. Follow-up in the office at [facility] on Saturday01/30/22. Call the office with any questions or concerns,
[2022-01-26] MEDS: LACTATED RINGERS 1,000 ML IV SCH ×2 (15:18)
[2022-01-26 15:42] VITALS: RESP 17
[2022-01-26 18:04] VITALS: BP 119/75; PULSE 103; TEMP 98.4
--- NOTE | 2022-01-26 19:25 | P.PN ---
Subjective Progress Note Date: 01/26/22 - Reason for Consult Consult date: 01/25/22 Medical management postop right hip arthroplasty - History of Present Illness This is a 71-year-old female who was admitted under orthopedic services underwent right hip total arthroplasty along with removal of right hip hardware with anterior approach postop day #1. Patient is currently sitting up in the chair reporting to some minimal pain although currently managed. Patient does have a Hemovac drain noted with serous drainage otherwise the right hip surgical site appears dry and intact with some surrounding swelling and no erythema noted. Groin with some minimal bruising noted although soft and palpable on the right. Patient reports she lives at [facility] and will be returning there when stable and discharged. WBC was slightly elevated at 15.7 and hemoglobin is 7.7. Recommend closely monitoring CBC and will follow-up with repeat labs in a.m. Patient was taking Eliquis and will resume. Patient reports her primary care provider is Dr. Sanchez and has a past medical history of COPD, deep vein thrombosis, memory impairment, neurological disorders including multiple scl erosis and history of fall with right femur fracture in December 2021. Patient denies illicit drug use or alcohol and reports she was a former smoker. Per. Home medications were reviewed and resumed and recommend continue monitoring vital signs closely as patient has been postoperatively slightly hypotensive. Patient was maintained on lactated Ringer's and will decrease the rate and follow-up with repeat labs in a.m. WBC this morning is elevated at 15.7 likely reactive. Patient is afebrile denies chest pain or shortness of breath or cough and denies any difficulty urinating. Patient continues with an indwelling Zuniga catheter for now which will likely be discontinued this evening or tomorrow. 01/26/2022 Patient is seen in follow-up this morning post right hip arthroplasty and doing well. Patient hemoglobin is 6.3 today and will receive a unit of blood. Patient is afebrile and denies chest pain or shortness of breath. Patient is on room air and reports to eating well. Patient is having gas and urinating with zuniga removed. Patient is returning to [facility] today. Review of systems: Constitutional: No reports of fatigue, fever, or chills Cardiovascular: No reports of chest pain or palpitations Respiratory: No reports of shortness of breath or cough GI: No reports of nausea, vomiting, or diarrhea : No reports of dysuria or retention Neurovascular: reports of generalized weakness All medications have been reviewed PHYSICAL EXAMINATION: GENERAL: The patient is alert and oriented x4, Well developed, well nourished. HEENT: Pupils are round and equally reacting to light. EOMI. no scleral icterus. No conjunctival pallor. Normocephalic, atraumatic. No pharyngeal erythema. No thyromegaly. CARDIOVASCULAR: S1 and S2 muffled PULMONARY: diminished breath sounds bilaterally with no wheezing or rhonchi noted. ABDOMEN: soft. Nontender on exam. non-distended, normoactive bowel sounds. No palpable organomegaly. MUSCULOSKELETAL: No joint swelling or deformity. EXTREMITIES: No cyanosis, clubbing, or pedal edema. Right hip surgical dressing anterior is dry and intact with some surrounding swelling and no erythema noted. There is a small amount of bruising in the groin on the right that is soft and palpable on exam NEUROLOGICAL: Gross neurological examination did not reveal any focal deficits. Diffuse weakness SKIN: No rashes. Assessment: Status post right total hip arthroplasty with removal of previous right hip hardware postop day #2 Mild leukocytosis, most likely reactive, secondary to above Acute blood loss anemia, expected in surgery secondary to above History of fall with a right femur fracture acquiring surgery History of DVTs, currently on eliquis History of multiple sclerosis COPD, not in exacerbation History of memory impairment Former smoker GI prophylaxis DVT prophylaxis Full code Plan: Recommend to continue with current medications and management per orthopedic services. patient is postop right total hip arthroplasty with removal of old hardware anterior approach day #2. Patient continues with Hemovac and wound VAC dressing with a tight seal and serous drainage noted in the Hemovac. Hemoglobin was 6.3 today and will receive one unit of prbc and recommend repeat labs outpatient. Script provided. Patient will be returning to [facility]. Appropriate home medications have been reviewed and resumed. Incentive spirometer at the bedside and encourage the patient to continue using at least 10 times every hour while awake. We will continue to follow during hospitalization. Thank you kindly for this consultation. Patient will be discharged after transfusion. The impression and plan of care has been dictated by Elisha Bravo, nurse practitioner as directed. Dr. Tyler MD I have performed a history and examination and MDM of this patient, discussed the same with the dictator, and agree with the dictator's assessment and plan as written ,documented as a scribe. Based on total visit time, I have performed more than 50% of the visit. Any additional findings or plans will be noted. Objective - Vital Signs Vital signs: Vital Signs Temp 98.0 F 01/26/22 08:00 Pulse 107 H 01/26/22 08:00 Resp 16 01/26/22 08:00 BP 93/52 01/26/22 08:00 Pulse Ox 93 L 01/26/22 08:00 FiO2 Intake & Output 01/25/22 01/26/22 01/26/22 18:59 06:59 18:59 Output Total 250 550 Balance -250 -550 Output: Urine 250 550 Uretheral (Zuniga) 275 Other: Voiding Method Indwelling Catheter Indwelling Catheter - Labs CBC & Chem 7: 01/26/22 10:32 01/26/22 10:32 Labs: Microbiology - Last 24 Hours (Table) 01/24/22 21:25 Gram Stain - Preliminary Hip - Right Tissue Culture - Preliminary 01/24/22 21:25 Anaerobic Culture - Preliminary Hip - Right
== END 2022-01-26 19:16 | DRG 467 ==
LOC: OR 13:04 → 4SSUR 21:42 → OR 01-26 12:10 → 4SSUR 01-26 12:10
PROVIDERS: ADMIT Orthopaedic Surgery; ATTEND Orthopaedic Surgery
PROC: 0SP90JZ Removal of Synthetic Substitute from Right Hip Joint, Open Approach (ICD-10-PCS; 2022-01-24)
PROC: 2W1LX6Z Compression of Right Lower Extremity using Pressure Dressing (ICD-10-PCS; 2022-01-24)
PROC: 0SR9049 Replacement of Right Hip Joint with Ceramic on Polyethylene Synthetic Substitute, Cemented, Open Approach (ICD-10-PCS; principal; 2022-01-24 15:55)
PROC: 30233N1 Transfusion of Nonautologous Red Blood Cells into Peripheral Vein, Percutaneous Approach (ICD-10-PCS; 2022-01-26)
DX: T84.090A Other mechanical complication of internal right hip prosthesis, initial encounter (principal); D62 Acute posthemorrhagic anemia; G35 Multiple sclerosis; J44.9 Chronic obstructive pulmonary disease, unspecified; I95.9 Hypotension, unspecified; M21.751 Unequal limb length (acquired), right femur; M16.11 Unilateral primary osteoarthritis, right hip; M85.851 Other specified disorders of bone density and structure, right thigh; D72.828 Other elevated white blood cell count; Z86.718 Personal history of other venous thrombosis and embolism; Z91.81 History of falling; S72.91XG Unspecified fracture of right femur, subsequent encounter for closed fracture with delayed healing; Z87.891 Personal history of nicotine dependence; Z79.01 Long term (current) use of anticoagulants; Z88.0 Allergy status to penicillin; Z91.041 Radiographic dye allergy status; Z86.711 Personal history of pulmonary embolism
CPT/HCPCS: 73501; 80048; 85025; 86850; 86900; 86901; 86920; 87070; 87075; 87205; 87635; 88300

== ENCOUNTER 2022-08-20 13:55 | Inpatient (IN) | payer MEDICARE ==
[2022-08-20] MEDS ORDERED: MORPHINE SULFATE 4 MG/ML SYRINGE IV STA (13:59)
--- NOTE | 2022-08-20 14:14 | ED ---
General Adult HPI - General Chief complaint: Extremity Injury, Lower Stated complaint: fall Time Seen by Provider: 08/20/22 13:57 Source: patient, family, EMS Mode of arrival: EMS Limitations: physical limitation - History of Present Illness Initial comments: Dictation was produced using ListRunner dictation software. please excuse any gra mmatical, word or spelling errors. Chief Complaint: 72-year-old male presents with right femur fracture History of Present Illness: And is a 72-year-old female last year she had total hip replacement of the right hip done by orthopedic surgery. Today she was turning when she lost her balance causing her to fall on her side. Patient complains of pain at the right mid femur. EMS called patient brought to ER. EMS reports the patient had gross deformity to her right femur area. She was given 50 mg of fentanyl prior to arrival. The ROS documented in this emergency department record has been reviewed and confirmed by me. Those systems with pertinent positive or negative responses have been documented in the HPI. All other systems are other negative and/or noncontributory. - Related Data Home Medications Medication Instructions Recorded Confirmed Apixaban [Eliquis] 2.5 mg PO BID 12/28/21 01/24/22 Cyclobenzaprine [Flexeril] 5 mg PO BID PRN 01/22/22 01/24/22 Acetaminophen Tab [Tylenol Tab] 1,000 mg PO Q6H PRN 08/20/22 08/20/22 Alendronate Sodium [Fosamax] 70 mg PO GUZMAN 08/20/22 08/20/22 Venlafaxine HCl [Effexor XR] 75 mg PO DAILY 08/20/22 08/20/22 Previous Rx's Medication Instructions Recorded Omeprazole 40 mg PO DAILY 30 Days #30 cap 01/26/22 Allergies Allergy/AdvReac Type Severity Reaction Status Date / Time amoxicillin Allergy Rash/Hives Verified 08/20/22 16:23 Iodinated Contrast Media Allergy difficulty Verified 08/20/22 16:23 breathing heparin AdvReac Nose & Verified 08/20/22 16:23 gums bleeding Review of Systems ROS Statement: Those systems with pertinent positive or pertinent negative responses have been documented in the HPI. ROS Other: All systems not noted in ROS Statement are negative. Past Medical History Past Medical History: COPD, Deep Vein Thrombosis (DVT), Memory Impairment, N eurologic Disorder, Pneumonia Additional Past Medical History / Comment(s): multiple sclerosis, Osteoporosis, Hx of fall with fx right femur fx with surgery & has been at [facility] since then., bozena lift used to transfer. hx fall 01/01/22 History of Any Multi-Drug Resistant Organisms: None Reported Past Surgical History: Orthopedic Surgery Additional Past Surgical History / Comment(s): right hip surgery, venous wall stent right and left leg by Dr Gaytan, Breast bx, colonoscopy., cataracts Past Anesthesia/Blood Transfusion Reactions: No Reported Reaction Past Psychological History: No Psychological Hx Reported Smoking Status: Former smoker Past Alcohol Use History: None Reported Past Drug Use History: None Reported General Exam - General Exam Comments Initial Comments: PHYSICAL EXAM: General Impression: Alert and oriented x3, not in acute distress HEENT: Normocephalic atraumatic, extra-ocular movements intact, pupils equal and reactive to light bilaterally, mucous membranes moist. Cardiovascular: Heart regular rate and rhythm Chest: Able to complete full sentences, no retractions, no tachypnea Abdomen: abdomen soft, non-tender, non-distended, no organomegaly Musculoskeletal: Pulses present and equal in all extremities, gross deformity to right mid femur Motor: no focal deficits noted Neurological: CN II-XII grossly intact, no focal motor or sensory deficits noted Skin: Intact with no visualized rashes Psych: Normal affect and mood Limitations: physical limitation Course Vital Signs 08/20/22 08/20/22 08/20/22 13:58 15:38 15:42 Temperature 98.6 F Pulse Rate 93 93 86 Respiratory 18 18 18 Rate Blood Pressure 115/74 110/81 128/76 O2 Sat by Pulse 99 99 100 Oximetry Procedures - Orthopedic Fracture Reduction Fracture #1 Consent Obtained: verbal consent, written consent Side: right Fracture Reduction Location: femur Analgesia: procedural sedation Technique: direct manipulation Post Reduction X-rays Demonstrate: other Post-Reduction Neuro Exam: intact Post-Reduction Vascular Exam: intact Splint Applied: Yes Patient Tolerated Procedure: well - Procedural Sedation *Procedural Sedation Start Time: 15:39 *Procedural Sedation Stop Time: 15:45 *Indications: fracture/dislocation reduction *Previous Adverse Reaction to Anesthesia/Sedation?: No * Testing Complete?: No Reason Test Not Complete:: Post-menopausal *ASA Class: I *Mallampati Airway Score: 2 Preparation: cardiac rehab nurse applied, pulse oximeter Ketamine: IV Ketamine Dose: 50 Complications: none Patient Tolerated Procedure: well Medical Decision Making - Medical Decision Making Was pt. sent in by a medical professional or institution (, NORBERTO, ENTERTAINMENT DIRECTOR, urgent care, hospital, or assisted...) When possible be specific @ -No Did you speak to anyone other than the patient for history (EMS, parent, family, police, friend...)? What history was obtained from this source @ -No Did you review nursing and triage notes (agree or disagree)? Why? @ -I reviewed and agree with nursing and triage notes Were old charts reviewed (outside hosp., previous admission, EMS record, old EKG, old radiological studies, urgent care reports/EKG's, assisted records)? Report findings @ -No old charts were reviewed Differential Diagnosis (chest pain, altered mental status, abdominal pain women, abdominal pain men, vaginal bleeding, musculoskeletal, weakness, fever, dyspnea, syncope, headache, dizziness, GI bleed, back pain, seizure, CVA, palpatations, mental health)? @ -not applicable EKG interpreted by me (3pts min.). @ -My EKG interpretation: Ventricular rate 86, sinus rhythm, PA interval 96, QRS 74, QTc 412. No PA prolongation, no QTC prolongation, no ST or T-wave changes noted. Overall, this EKG is unremarkable X-rays interpreted by me (1pt min.). @ -Femur x-ray shows femur fracture with significant undulation. Chest x-ray is nonacute CT interpreted by me (1pt min.). @ -None done U/S interpreted by me (1pt. min.). @ -None done What testing was considered but not performed or refused? (CT, X-rays, U/S, labs)? Why? @ -None What meds were considered but not given or refused? Why? @ -None Did you discuss the management of the patient with other professionals (professionals i.e. NORBERTO Benitez, ENTERTAINMENT DIRECTOR, lab, RT, psych nurse, clinical social work therapist, erecting engineer, teacher, marine safety officer, shelter case manager)? Give summary @ -X-ray and clinical presentation discussed with Dr. Jarrett for admission Was smoking cessation discussed for >3mins.? @ -No Was critical care preformed (if so, how long)? @ -No Were there social determinants of health that impacted care today? How? (Homelessness, low income, unemployed, alcoholism, drug addiction, transportation, low edu. Level, literacy, decrease access to med. care, alf, rehab)? @ -No Was there de-escalation of care discussed even if they declined (Discuss DNR or withdrawal of care, Hospice)? DNR status @ -No What co-morbidities impacted this encounter? (DM, HTN, Smoking, COPD, CAD, Cancer, CVA, ARF, Chemo, Hep., AIDS, mental health diagnosis, sleep apnea, morbid obesity)? @ -None Was patient admitted / discharged? Hospital course, mention meds given and route, prescriptions, significant lab abnormalities, going to OR and other pertinent info. @ -72-year-old female presents with right femur fracture. Vital signs upon arrival are within acceptable limits. X-ray shows femur fracture with significant angulation. Fracture was closed. Patient underwent procedural sedation for manipulation of fracture. Leg was placed in a knee immobilizer. Patient be admitted Undiagnosed new problem with uncertain prognosis? @ -No Drug Therapy requiring intensive monitoring for toxicity (Heparin, Nitro, Insulin, Cardizem)? @ -No Were any procedures done? @ -No Diagnosis/symptom? Acute, or Chronic, or Acute on Chronic? Uncomplicated (with out systemic symptoms) or Complicated (systemic symptoms)? @ -1. Femur fracture Side effects of treatment? @ -No Exacerbation, Progression, or Severe Exacerbation? @ -No Poses a threat to life or bodily function? How? (Chest pain, [place], [place], pneumonia, PE, COPD, DKA, ARF, appy, cholecystitis, CVA, Diverticulitis, Homicidal, Suicidal, threat to staff... and all critical care pts) @ -yes - Lab Data Result diagrams: 08/20/22 14:47 08/20/22 14:47 Lab Results 08/20/22 08/20/22 08/20/22 Range/Units 14:47 14:47 14:47 WBC 6.7 (3.8-10.6) k/uL RBC 4.40 (3.80-5.40) m/uL Hgb 12.3 (11.4-16.0) gm/dL Hct 39.2 (34.0-46.0) % MCV 89.1 (80.0-100.0) fL MCH 27.9 (25.0-35.0) pg MCHC 31.3 (31.0-37.0) g/dL RDW 15.3 (11.5-15.5) % Plt Count 309 (150-450) k/uL MPV 7.8 Neutrophils % 65 % Lymphocytes % 25 % Monocytes % 5 % Eosinophils % 4 % Basophils % 0 % Neutrophils # 4.3 (1.3-7.7) k/uL Lymphocytes # 1.7 (1.0-4.8) k/uL Monocytes # 0.3 (0-1.0) k/uL Eosinophils # 0.3 (0-0.7) k/uL Basophils # 0.0 (0-0.2) k/uL Hypochromasia Slight PT 10.3 (9.0-12.0) sec INR 1.0 (<1.2) APTT 24.4 (22.0-30.0) sec Sodium 141 (137-145) mmol/L Potassium 3.7 (3.5-5.1) mmol/L Chloride 109 H (98-107) mmol/L Carbon Dioxide 25 (22-30) mmol/L Anion Gap 7 mmol/L BUN 10 (7-17) mg/dL Creatinine 0.41 L (0.52-1.04) mg/dL Est GFR (CKD-EPI)AfAm >90 (>60 ml/min/1.73 sqM) Est GFR (CKD-EPI)NonAf >90 (>60 ml/min/1.73 sqM) Glucose 101 H (74-99) mg/dL Calcium 8.7 (8.4-10.2) mg/dL Disposition Clinical Impression: Femur fracture Disposition: ADMITTED IP TO THIS [facility] Condition: Fair Referrals: None,Stated [Primary Care Provider] - 1-2 days Decision Time: 16:38
[2022-08-20] MEDS ORDERED: KETAMINE HCL IN 0.9 % NACL 50 MG/5 ML SYRINGE IV ONE (14:44)
[2022-08-20 14:53] LABS: Basophils % (A) 0 %; Eosinophils # (A) 0.3 k/uL (0-0.7); Eosinophils % (A) 4 %; HCT 39.2 % (34.0-46.0); HGB 12.3 gm/dL (11.4-16.0); Hypochromasia Slight; Lymphocytes # (A) 1.7 k/uL (1.0-4.8); Lymphocytes % (A) 25 %; MCH 27.9 pg (25.0-35.0); MCHC 31.3 g/dL (31.0-37.0); MCV 89.1 fL (80.0-100.0); Mean Platelet Volume 7.8; Monocytes # (A) 0.3 k/uL (0-1.0); Monocytes % (A) 5 %; Neutrophils # (A) 4.3 k/uL (1.3-7.7); Neutrophils % (A) 65 %; Platelet Count 309 k/uL (150-450); RDW 15.3 % (11.5-15.5); WBC 6.7 k/uL (3.8-10.6)
--- NOTE | 2022-08-20 14:58 | XR ---
EXAMINATION TYPE: XR chest 1V portable DATE OF EXAM: 08/20/2022 HISTORY: Shortness of breath. COMPARISON: None. TECHNIQUE: Single view of the chest is submitted. FINDINGS: Demonstrated are scattered senescent parenchymal change. There is no evidence for focal infiltrate. The heart is stable. Hilar and mediastinal structures are within normal limits. Degenerative changes are seen of the dorsal spine. Bone infarct proximal right humerus. IMPRESSION: 1. Chronic changes without evidence for acute pulmonary disease.
--- NOTE | 2022-08-20 15:00 | XR ---
EXAMINATION TYPE: XR femur RT DATE OF EXAM: 08/20/2022 CLINICAL HISTORY: pain TECHNIQUE: Two views of the right femur are obtained. COMPARISON: None. FINDINGS: Angulated fracture greater than 90 degrees involving the middle one third of the right humeral diaphy sis. Proximal right humeral prosthesis noted to be in place. Iliac stents and calcified uterine leiom yoma. IMPRESSION: Fracture mid right humeral diaphysis with angulation as discussed.
[2022-08-20 15:06] LABS: Partial Thromboplastin Time 24.4 sec (22.0-30.0); Prothrombin Time 10.3 sec (9.0-12.0)
[2022-08-20 15:14] LABS: African American GFR (CKD) >90 (>60 ml/min/1.73 sqM); Anion Gap 7 mmol/L; Blood Urea Nitrogen 10 mg/dL (7-17); Calcium 8.7 mg/dL (8.4-10.2); Carbon Dioxide 25 mmol/L (22-30); Chloride 109 mmol/L (98-107); Glucose 101 mg/dL (74-99); Non-African American GFR(CKD) >90 (>60 ml/min/1.73 sqM); Potassium 3.7 mmol/L (3.5-5.1); Sodium 141 mmol/L (137-145)
[2022-08-20] MEDS ORDERED: NALOXONE 0.4 MG/ML 1 ML VIAL IV PRN (15:46)
[2022-08-20] MEDS: MORPHINE SULFATE 4 MG/ML SYRINGE IV PRN ×2 (16:36→23:24)
[2022-08-20] MEDS: SODIUM CHLORIDE 0.9% 1,000 ML IV SCH (17:57)
--- NOTE | 2022-08-20 18:26 | XR ---
EXAMINATION TYPE: XR femur RT DATE OF EXAM: 08/20/2022 5:58 PM INDICATION: Patient age:Female; 72 years old; Reason for study: reduction; COMPARISON: 08/20/2022 TECHNIQUE: The right femur was examined in Frontal and lateral projections. FINDINGS/IMPRESSION: Improved anatomic alignment with persistent right femur midshaft fracture. There remains anterior ang ulation and shortening. This is located approximately 8.1 cm from the prosthetic stem. No new fractur es.
--- NOTE | 2022-08-20 18:56 | P.HPIM ---
History of Present Illness H&P Date: 08/20/22 Chief Complaint: preoperative clearance, medical management 72 year old woman with history of MS, osteoporosis, history of DVT, COPD, previous right hip fracture s/p VITA presented after fall resulted in hip fracture. Medicine consulted by orthopedic surgery service for preoperative evaluation as well as medical management. DASI estimates METs as 3.63. Pt denies hx of stroke, [place]. Denies fevers, chills, nausea, vomiting, chest pain, palpitations, syncope, presyncope, cough, dyspnea, abdominal pain, constipation, diarrhea, dysuria, numbness/weakness of extremities. In the emergency room, patient was afebrile, 112/74, heart rate 95, 99% on [address] of [address] cannula. CT is unremarkable. His metabolic panel is unremarkable. Coags are unremarkable. Chest x-ray shows normal-sized heart, clear parenchyma bilaterally. EKG shows normal sinus rhythm with short IN interval. Femur x-ray shows fracture of the mid right femoral diaphysis with angulation. All Systems reviewed and pertinent positives and negatives noted in HPI, all other symptoms are negative Gen: in no apparent distress, resting comfortably in bed Eyes: PERRL, no scleral injection or icterus HENT: normocephalic, atraumatic, good hearing acuity, moist mucous membranes Neck: no tracheal deviation, full range of motion Resp: good air exchange, breathing comfortably with no accessory muscle use, no tactile fremitus CVS: good distal perfusion x 4, no pitting edema GI: soft, NTTP, ND, no hepatosplenomegaly : no suprapubic tenderness, no CVAT, zuniga catheter not present MSK: no clubbing, no cyanosis, no noted contractures of extremities Skin: no noted rashes, petechiae; temperature of skin is appropriate Neuro: moving all extremities without signs of weakness, CN II-XII intact Psych: cooperative, euthymic mood, insight and judgment intact Assessment: Preoperative clearance History of DVT Osteoporosis History of MS COPD without exacerbation History of right hip fracture status post VITA Acute right hip fracture Plan: Vital signs reviewed and noted in the HPI Lab work reviewed and noted in the HPI EKG and CXR are personally interpreted and noted in the HPI Femur x-ray is reviewed and noted in HPI NSQIP estimates the risk of MACE of 1.4%. Patient may proceed to surgery without further testing. I do recommend holding Apixiban. Patient is full code Past Medical History Past Medical History: COPD, Deep Vein Thrombosis (DVT), Memory Impairment, Neurologic Disorder, Pneumonia Additional Past Medical History / Comment(s): multiple sclerosis, Osteoporosis, Hx of fall with fx right femur fx with surgery & has been at [facility] since then., bozena lift used to transfer. hx fall 01/01/22 History of Any Multi-Drug Resistant Organisms: None Reported Past Surgical History: Orthopedic Surgery Additional Past Surgical History / Comment(s): right hip surgery, venous wall stent right and left leg by Dr Gaytan, Breast bx, colonoscopy., cataracts Past Anesthesia/Blood Transfusion Reactions: No Reported Reaction Past Psychological History: No Psychological Hx Reported Smoking Status: Former smoker Past Alcohol Use History: None Reported Past Drug Use History: None Reported Medications and Allergies Home Medications Medication Instructions Recorded Confirmed Type Apixaban [Eliquis] 2.5 mg PO BID 12/28/21 08/20/22 History Cyclobenzaprine [Flexeril] 5 mg PO BID PRN 01/22/22 08/20/22 History Omeprazole 40 mg PO DAILY 30 Days #30 cap 01/26/22 08/20/22 Rx Acetaminophen Tab [Tylenol Tab] 1,000 mg PO Q6H PRN 08/20/22 08/20/22 History Alendronate Sodium [Fosamax] 70 mg PO GUZMAN 08/20/22 08/20/22 History Venlafaxine HCl [Effexor XR] 75 mg PO DAILY 08/20/22 08/20/22 History Allergies Allergy/AdvReac Type Severity Reaction Status Date / Time amoxicillin Allergy Rash/Hives Verified 08/20/22 16:23 Iodinated Contrast Media Allergy difficulty Verified 08/20/22 16:23 breathing heparin AdvReac Nose & Verified 08/20/22 16:23 gums bleeding Physical Exam Osteopathic Statement: *. No significant issues noted on an osteopathic structural exam other than those noted in the History and Physical/Consult. Vitals: Vital Signs Temp Pulse Resp BP Pulse Ox 08/20/22 17:47 95 18 112/74 99 08/20/22 17:15 101 H 18 104/72 99 08/20/22 16:45 98 18 120/74 99 08/20/22 16:30 93 18 113/81 99 08/20/22 16:15 94 18 132/76 99 08/20/22 16:00 96 16 130/80 99 08/20/22 15:45 90 14 144/82 100 08/20/22 15:42 86 14 128/76 100 08/20/22 15:38 93 18 110/81 99 08/20/22 13:58 98.6 F 93 18 115/74 99 Intake and Output 08/20/22 08/20/22 08/20/22 06:59 14:59 22:59 Other: Weight 49.895 kg Results CBC & Chem 7: 08/20/22 14:47 08/20/22 14:47 Labs: Abnormal Lab Results - Last 24 Hours (Table) 08/20/22 Range/Units 14:47 Chloride 109 H (98-107) mmol/L Creatinine 0.41 L (0.52-1.04) mg/dL Glucose 101 H (74-99) mg/dL
--- NOTE | 2022-08-20 19:21 | P.HPOR ---
History of Present Illness H&P Date: 08/20/22 This patient is a 72- year old female with a past medical history of DVT on Eliquis, COPD, multiple sclerosis, recent right total hip arthroplasty in January 2022 that presented to [facility] emergency department this afternoon via EMS with complaints of right thigh pain after a fall. There was obvious deformity to the right thigh, therefore EMS was called. X-rays in the ED revealed a femur fracture. Patient received sedation for fracture reduction and was placed into a knee immobilizer. The patient was admitted under the care of Dr. Jarrett for surgical intervention with a consult placed to internal medicine for pre-op medical evaluation. Patient is evaluated bedside in the emergency department this evening with Dr. Jarrett. She is complaining of isolated right thigh pain. She denies additional injuries. Pain is well-controlled at this time. No complaints. Vital signs stable. Past Medical History Past Medical History: COPD, Deep Vein Thrombosis (DVT), Memory Impairment, Neurologic Disorder, Pneumonia Additional Past Medical History / Comment(s): multiple sclerosis, Osteoporosis, Hx of fall with fx right femur fx with surgery & has been at [facility] since then., bozena lift used to transfer. hx fall 01/01/22 History of Any Multi-Drug Resistant Organisms: None Reported Past Surgical History: Orthopedic Surgery Additional Past Surgical History / Comment(s): right hip surgery, venous wall stent right and left leg by Dr Gaytan, Breast bx, colonoscopy., cataracts Past Anesthesia/Blood Transfusion Reactions: No Reported Reaction Past Psychological History: No Psychological Hx Reported Smoking Status: Former smoker Past Alcohol Use History: None Reported Past Drug Use History: None Reported Medications and Allergies Home Medications Medication Instructions Recorded Confirmed Type Apixaban [Eliquis] 2.5 mg PO BID 12/28/21 08/20/22 History Cyclobenzaprine [Flexeril] 5 mg PO BID PRN 01/22/22 08/20/22 History Omeprazole 40 mg PO DAILY 30 Days #30 cap 01/26/22 08/20/22 Rx Acetaminophen Tab [Tylenol Tab] 1,000 mg PO Q6H PRN 08/20/22 08/20/22 History Alendronate Sodium [Fosamax] 70 mg PO GUZMAN 08/20/22 08/20/22 History Venlafaxine HCl [Effexor XR] 75 mg PO DAILY 08/20/22 08/20/22 History Allergies Allergy/AdvReac Type Severity Reaction Status Date / Time amoxicillin Allergy Rash/Hives Verified 08/20/22 16:23 Iodinated Contrast Media Allergy difficulty Verified 08/20/22 16:23 breathing heparin AdvReac Nose & Verified 08/20/22 16:23 gums bleeding Physical Examination On examination, patient is sitting up on the gurney in no apparent distress. She is alert and orientated x3. Family is bedside. Her head appears normocephalic and atraumatic. Her breathing appears non-labored. On inspection of the bilateral upper extremities, no obvious deformities or signs of trauma. On inspection of the left lower extremity, no obvious deformities or signs of trauma. On inspection of the right lower extremity, knee immobilizer in place. The foot and toes are warm and well perfused. Motor and sensory function is intact of the right lower extremity. Results Right femur x-ray 08/20/22: Displaced right midshaft femur fracture with improved alignment on post-reduction films. Fracture line distal to femoral stem. Stem appears stable. - Labs Labs: Abnormal Lab Results - Last 24 Hours (Table) 08/20/22 Range/Units 14:47 Chloride 109 H (98-107) mmol/L Creatinine 0.41 L (0.52-1.04) mg/dL Glucose 101 H (74-99) mg/dL H & H 08/20/22 Range/Units 14:47 Hgb 12.3 (11.4-16.0) gm/dL Hct 39.2 (34.0-46.0) % Coagulation 08/20/22 Range/Units 14:47 INR 1.0 (<1.2) Result Diagrams: 08/20/22 14:47 08/20/22 14:47 Assessment and Plan Assessment: Right pop-prosthetic midshaft femur fracture History of right total hip arthroplasty in January 2022 Plan: - Clinical and imaging findings were discussed in detail with patient and her family. Surgical fixation is recommended. We will plan for right femur ORIF tomorrow afternoon. Patient has been evaluated by internal team and cleared for surgery. - Bed rest. Keep knee immobilizer on at all times. - Pain management as needed. - NPO diet at midnight. Will plan for OR tomorrow.
[2022-08-21] MEDS: ACETAMINOPHEN TAB 500 MG TAB PO PRN ×2 (07:39→13:16)
[2022-08-21] MEDS: CYCLOBENZAPRINE 5 MG TAB PO PRN (07:41)
[2022-08-21] MEDS: MORPHINE SULFATE 4 MG/ML SYRINGE IV PRN ×2 (07:41→13:16)
[2022-08-21] MEDS: VENLAFAXINE HCL ER 75 MG CAP PO SCH (07:41)
[2022-08-21] MEDS: PANTOPRAZOLE 40 MG TABLET PO SCH (07:41)
--- NOTE | 2022-08-21 09:35 | P.PN ---
Subjective Progress Note Date: 08/21/22 No new complaints today. Pending ORIF. Gen: awake, alert HEENT: normocephalic, atraumatic, good hearing acuity, moist mucous membranes Resp: good air exchange, breathing comfortably with no accessory muscle use CVS: good distal perfusion x 4, GI: soft, NTTP, ND : no SPT, no CVAT, zuniga catheter not present MSK: no pitting edema, no clubbing Neuro: non-focal, moving all extremities Psych: cooperative, euthymic mood Hospital course: 72 year old woman with history of MS, osteoporosis, history of DVT, COPD, previous right hip fracture s/p VITA presented after fall resulted in hip fracture. Medicine consulted by orthopedic surgery service for preoperative evaluation as well as medical management. DASI estimates METs as 3.63. In the emergency room, patient was afebrile, 112/74, heart rate 95, 99% on 3 L of nasal cannula. CT is unremarkable. His metabolic panel is unremarkable. Coags are unremarkable. Chest x-ray shows normal-sized heart, clear parenchyma bilaterally. EKG shows normal sinus rhythm with short CO interval. Femur x-ray shows fracture of the mid right femoral diaphysis with angulation. Assessment: Preoperative clearance History of DVT Osteoporosis History of MS COPD without exacerbation History of right hip fracture status post VITA Acute right hip fracture Plan: Today, patient is afebrile, 107/70, heart rate 99, 98% on 2 L nasal cannula Preoperative EKG reviewed, shows normal sinus rhythm with short CO interval, no signs of ischemia or old infarct. NSQIP estimates the risk of MACE of 1.4%. Patient may proceed to surgery without further testing. I do recommend holding Apixiban. Patient is full code Objective - Vital Signs Vital signs: Vital Signs Temp 98.7 F 08/21/22 07:40 Pulse 99 08/21/22 07:40 Resp 18 08/21/22 07:40 BP 107/70 08/21/22 07:40 Pulse Ox 98 08/21/22 07:40 FiO2 Intake & Output 08/20/22 08/21/22 08/21/22 18:59 06:59 18:59 Weight 49.895 kg - Labs CBC & Chem 7: 08/20/22 14:47 08/20/22 14:47 Labs: Abnormal Lab Results - Last 24 Hours (Table) 08/20/22 Range/Units 14:47 Chloride 109 H (98-107) mmol/L Creatinine 0.41 L (0.52-1.04) mg/dL Glucose 101 H (74-99) mg/dL
[2022-08-21 13:50] LABS: Appearance,Urine Cloudy (Clear); Bacteria,Urine Many /hpf; Bilirubin,Urine Negative (Negative); Blood,Urine Small (Negative); Color,Urine Yellow; Glucose,Urine (UA) Negative (Negative); Ketones,Urine Negative (Negative); Leukocyte Esterase,Urine Large (Negative); Mucus,Urine Rare /hpf; Nitrite,Urine Negative (Negative); Protein,Urine Trace (Negative); RBC,Urine 9 /hpf (0-5); Specific Gravity,Urine 1.018 (1.001-1.035); Urobilinogen,Urine <2.0 mg/dL (<2.0); WBC,Urine 81 /hpf (0-5)
[2022-08-21] MEDS ORDERED: SODIUM CHLORIDE 0.9% 1,000 ML IV ONE (14:40)
[2022-08-21] MEDS ORDERED: TRANEXAMIC ACID 1,000 MG in SODIUM CHLORIDE 0.9% 100 ML IVPB ONE ×4 (15:08)
[2022-08-21] MEDS: SODIUM CHLORIDE 0.9% 1,000 ML IV SCH (16:00)
[2022-08-21] MEDS ORDERED: IV FLUID CONTINUATION 1,000 ML IV ONE (16:41)
[2022-08-21] MEDS: HYDROcodone/APAP 5-325MG 1 EACH TAB PO PRN (18:03)
[2022-08-22] MEDS: MORPHINE SULFATE 4 MG/ML SYRINGE IV PRN ×2 (02:18→05:03)
[2022-08-22] MEDS: PANTOPRAZOLE 40 MG TABLET PO SCH (08:45)
[2022-08-22] MEDS: HYDROcodone/APAP 5-325MG 1 EACH TAB PO PRN ×2 (08:45→16:39)
[2022-08-22] MEDS: VENLAFAXINE HCL ER 75 MG CAP PO SCH (08:45)
[2022-08-22 14:10] VITALS: BMI 19.5
--- NOTE | 2022-08-22 15:24 | P.PN ---
Subjective Progress Note Date: 08/22/22 Subjective: Patient seen and examined at bedside. No acute events overnight. Continuous to have right hip pain. Pertinent positives and negatives as discussed above, a complete review of systems was performed and all other systems are negative. Vitals Signs Reviewed. General: nontoxic, no distress, appears at stated age Derm: warm, dry Head: atraumatic, normocephalic, symmetric Eyes: EOMI, no lid lag, anicteric sclera Mouth: no lip lesion, mucus membranes moist Cardiovascular: S1S2 reg, tachycardic, no murmur Lungs: CTA bilateral, no rhonchi, no rales , no accessory muscle use Abdominal: soft, nontender to palpation, no guarding, no appreciable organomegaly Ext: Unable to move right lower extremity Neuro: CN II-XI grossly intact, no focal neuro deficits Psych: Alert, oriented, appropriate affect Data Reviewed Today: No new labs available, pending urine cultures Assessment and Plan: Preoperative evaluation Acute right hip fracture History of right hip fracture status post VITA Urinary tract infection present on admission History of DVT History of MS Osteoporosis COPD without exacerbation Tachycardia -NSQIP estimates the risk of MACE of 1.4%. Hold Eliquis in the setting of acute hip fracture and pending surgical intervention -Patient has been tachycardic, possibly pain related, EKG shows normal sinus rhythm -Continue telemetry perioperatively -Patient is medically optimized for surgical intervention -Urinalysis consistent with urinary tract infection, continues to have increased urinary frequency -Sexton catheter in place -Continue ceftriaxone 1 g every 24 hours -Urine cultures pending Thank you for allowing us to participate in the care of this pleasant patient. Do not hesitate to contact us with questions. Someone can be reached from the [facility] hospitalist group all hours of the day at [phone] or via [employer]. Objective - Vital Signs Vital signs: Vital Signs Temp 98.6 F 08/22/22 11:21 Pulse 121 H 08/22/22 11:21 Resp 18 08/22/22 11:21 BP 94/60 08/22/22 11:21 Pulse Ox 94 L 08/22/22 11:21 FiO2 Intake & Output 08/21/22 08/22/22 08/22/22 18:59 06:59 18:59 Intake Total 120 Output Total 600 Balance -480 Weight 49.895 kg 49.895 kg Intake: Oral 120 Output: Urine 600 Other: Voiding Method Indwelling Catheter Indwelling Catheter - Labs CBC & Chem 7: 08/20/22 14:47 08/20/22 14:47
[2022-08-22] MEDS: SODIUM CHLORIDE 0.9% 1,000 ML IV SCH (16:41)
[2022-08-22] MEDS ORDERED: SUCCINYLCHOLINE CHLORIDE 200 MG/10 ML VIAL IV ONE (18:50)
[2022-08-22] MEDS ORDERED: TRANEXAMIC 1,000 MG/100ML-NACL PREMIX BAG ONE (18:50)
[2022-08-22] MEDS ORDERED: HYDROmorphone (PF) 1 MG/ML ONE (18:50)
[2022-08-22] MEDS ORDERED: LIDOCAINE 2% INJ 20 MG/ML (2 ML VIAL) ONE (18:50)
[2022-08-22] MEDS ORDERED: fentaNYL (PF) 50 MCG/ML 2 ML AMP ONE (18:50)
[2022-08-22] MEDS ORDERED: ROCURONIUM 10 MG/ML (5 ML VIAL) IV ONE (18:50)
[2022-08-22] MEDS ORDERED: PROPOFOL 10 MG/ML 20 ML VIAL IV ONE (18:50)
[2022-08-22] MEDS ORDERED: MIDAZOLAM 2 MG/2 ML VIAL ONE (18:50)
[2022-08-22] MEDS ORDERED: SODIUM CHLORIDE 0.9% 100 ML with ceFAZolin 2,000 MG IV ONE ×2 (18:54)
[2022-08-22] MEDS ORDERED: IV FLUID CONTINUATION 1,000 ML IV ONE (18:54)
[2022-08-22 20:03] LABS: HCT 24.8 % (34.0-46.0); MCH 28.8 pg (25.0-35.0); MCHC 32.2 g/dL (31.0-37.0); MCV 89.5 fL (80.0-100.0); Mean Platelet Volume 7.9; Platelet Count 173 k/uL (150-450); RBC 2.77 m/uL (3.80-5.40); RDW 14.9 % (11.5-15.5); WBC 6.1 k/uL (3.8-10.6)
[2022-08-22] MEDS ORDERED: LACTATED RINGERS 1,000 ML IV ONE ×2 (20:14→21:40)
[2022-08-22] MEDS ORDERED: HYDROmorphone 0.5 MG/0.5 ML SYRINGE IVP PRN ×2 (22:05)
--- NOTE | 2022-08-22 22:10 | FL ---
Intraoperative/procedural fluoroscopic services were provided. Total fluoroscopy time is 1.51 mins wi th a total of 7 submitted images to PACS. Please see the operative/procedural note for further detail s. DAP: 1.6248 mGym2
--- NOTE | 2022-08-22 22:12 | P.OP ---
Date of Procedure: 08/22/22 Preoperative Diagnosis: 1. Right midshaft femur fracture 2. Multiple sclerosis 3. Severe osteopenia with multiple prior fragility fractures 4. Dementia Postoperative Diagnosis: Same Procedure(s) Performed: Open reduction internal fixation right femoral shaft fracture Anesthesia: RACHELLE Surgeon: Gabino Jarrett Repairer Typewriter #1: Duke Peace Estimated Blood Loss (ml): 800 IV fluids (ml): 1,700 Pathology: none sent Condition: stable Disposition: PACU Indications for Procedure: The patient is a very pleasant 72-year-old female with multiple medical problems including multiple sclerosis, early dementia, and severe osteopenia previously had a failed right hip fracture implant that was revised to a total hip replacement. She is doing well following this but sustained a ground-level fall earlier this week. This resulted in obvious deformity in her right thigh. She was brought to the emergency department where x-rays showed a femoral shaft fracture. I met with the patient and her family discussed treatment options prior to surgery. We discussed that she is at a high risk of having a complication due to her severe osteopenia. We discussed the potential for failure fixation and re-fracture due to her severe osteopenia. They understand this. Due to the amount of displacement we all agreed it was in her best interest to attempt open reduction internal fixation. We had a long discussion on the potential risks and complication of surgery including but certainly not limited to risks from anesthesia, superficial infection, deep infection, delayed wound healing, nonunion, malunion, symptomatic hardware, hardware failure, damage to blood vessels or nerves, DVT, PE, failure to thrive, for further surgery, and possibly loss of life or limb. Again the patient and her understand that she is very high risk for having a complication particularly loss of fixation, refracture, and need for further surgery due to her severe osteopenia. They provided their verbal and written consent to go forward with surgery. Operative Findings: Severe osteopenia of the femoral shaft and comminution making reduction and maintenance of reduction extraordinarily difficult. Description of Procedure: The patient was identified in preoperative holding and the correct right leg was marked with my initials. I reviewed the consent form with the patient and her family. All their questions were answered. The patient was then brought back to the operating room by anesthesia. She was transferred onto the OR table where general anesthetic and preoperative antibiotics were given. A bump was placed under the right buttock and a ramp was placed under the right leg to facilitate imaging. The left leg was secured to the table with foam and tape. Nonsterile drapes were applied. A presurgical scrub was performed with a chlorhexidine scrub brush and water. The right leg was then prepped and draped in the standard sterile fashion. Prior to starting surgery timeout was performed identifying the correct patient, operative extremity, and procedure. I began by making a straight lateral incision to the femur. Skin incision was made with a scalpel and dissection was carried down to subcutaneous tissue with electrocautery. The IT band and fascia was identified and incised longitudinally in line with the skin incision. I then elevated the vastus lateralis off of the intermuscular septum down to the femur. Perforating vessels were controlled with bipolar sealant. On inspection of the femoral shaft fracture it was highly comminuted and the bone quality was very poor. Due to the amount of comminution and poor bone quality I was unable to get any type of clamp to provisionally hold the reduction. I initially tried to place a straight anterior plate but couldn't maintain a reduction even with 3.5 mm plate. I ultimately placed a precontoured lateral femoral locking plate over the lateral aspect of the shaft and provisionally reduced the femur with longitudinal traction and a bump of towels under the fracture site. The plate was centered over the femur and secured proximally and distally with nonlocking 4.5 mm screws. I then placed locking screws proximally and distally. For additional fixation I placed 2 cancellus screws distally and 2 cables proximally. Final fluoroscopic images were taken. The wound was thoroughly irrigated and closed in layers. I verified that all instrument, sponge, and sharp counts were correct. The patient was placed in a knee immobilizer, extubated, and brought to recovery having to the procedure well. Kennedi Peace PA-C was required as a skilled bookkeeper assistant for patient positioning, retraction, reduction, placement of hardware, closure of wound, and application of dressing. PLAN: The patient is very strictly nonweightbearing on her right leg for 3 months. She'll be in a knee immobilizer for the first 2 weeks. DVT prophylaxis can resume Eliquis.
[2022-08-23] MEDS: LACTATED RINGERS 1,000 ML IV SCH ×2 (00:22→08:59)
[2022-08-23] MEDS: hydrOXYzine pamoate 25 MG CAP PO PRN ×2 (03:48→20:38)
[2022-08-23] MEDS: HYDROcodone/APAP 5-325MG 1 EACH TAB PO PRN ×4 (03:49→20:37)
[2022-08-23 06:17] LABS: Basophils % (A) 0 %; Eosinophils % (A) 0 %; HCT 30.8 % (34.0-46.0); HGB 10.1 gm/dL (11.4-16.0); Lymphocytes # (A) 0.7 k/uL (1.0-4.8); Lymphocytes % (A) 6 %; MCH 29.1 pg (25.0-35.0); MCHC 32.7 g/dL (31.0-37.0); MCV 88.9 fL (80.0-100.0); Mean Platelet Volume 8.7; Monocytes # (A) 0.5 k/uL (0-1.0); Monocytes % (A) 5 %; Neutrophils # (A) 9.7 k/uL (1.3-7.7); Neutrophils % (A) 88 %; Platelet Count 202 k/uL (150-450); Poikilocytosis Slight; RBC 3.46 m/uL (3.80-5.40); RDW 14.9 % (11.5-15.5)
[2022-08-23 06:23] LABS: African American GFR (CKD) >90 (>60 ml/min/1.73 sqM); Anion Gap 8 mmol/L; Blood Urea Nitrogen 6 mg/dL (7-17); Calcium 7.4 mg/dL (8.4-10.2); Carbon Dioxide 20 mmol/L (22-30); Chloride 108 mmol/L (98-107); Glucose 103 mg/dL (74-99); Non-African American GFR(CKD) >90 (>60 ml/min/1.73 sqM); Potassium 3.8 mmol/L (3.5-5.1); Sodium 136 mmol/L (137-145)
[2022-08-23] MEDS: VENLAFAXINE HCL ER 75 MG CAP PO SCH (07:13)
[2022-08-23] MEDS: PANTOPRAZOLE 40 MG TABLET PO SCH (07:13)
[2022-08-23] MEDS: HYDROmorphone 0.5 MG/0.5 ML SYRINGE IVP PRN ×2 (07:53→15:05)
--- NOTE | 2022-08-23 09:55 | P.PN ---
Subjective Progress Note Date: 08/23/22 This patient is a 72- year old female who is status-post open reduction internal fixation right femoral shaft fracture on 08/22/22. Today is post-operative day #1. Patient is examined bedside this morning with Dr. Jarrett. She is having moderate pain in the right leg. Knee immobilizer is in place. Patient received 2 units of PRBCs yesterday pop-op and hemoglobin is 10.1 this morning. No additional complaints. Objective - Vital Signs Vital signs: Vital Signs Temp 99.3 F 08/23/22 07:30 Pulse 117 H 08/23/22 07:30 Resp 17 08/23/22 07:30 BP 111/74 08/23/22 07:30 Pulse Ox 94 L 08/23/22 08:36 FiO2 Intake & Output 08/22/22 08/23/22 08/23/22 18:59 06:59 18:59 Intake Total 800 1770 Output Total 500 1800 Balance 300 -30 Weight 49.895 kg Intake: IV 800 1150 Blood Product 620 Rc As-1 Unit 310 [id number] Rc As-1 Unit 310 [id number] Output: Urine 500 1000 Estimated Blood Loss 800 Other: Voiding Method Indwelling Catheter Indwelling Catheter - Exam On examination, patient is sitting up in bed in no apparent distress. She is alert and orientated x3. On inspection of the right lower extremity, there is a knee immobilizer in place. Operative dressing clean, dry, intact. Small amount of dried blood distal dressing. The right foot is warm and well perfused with brisk capillary refill distally. Dorsalis pedis pulse easily palpable. Motor and sensory function is intact RLE. - Labs CBC & Chem 7: 08/23/22 04:39 08/23/22 04:39 Labs: Abnormal Lab Results - Last 24 Hours (Table) 08/22/22 08/22/22 08/23/22 Range/Units 19:52 19:52 04:39 WBC (3.8-10.6) k/uL RBC 2.77 L (3.80-5.40) m/uL Hgb 8.0 L D (11.4-16.0) gm/dL Hct 24.8 L (34.0-46.0) % Neutrophils # (1.3-7.7) k/uL Lymphocytes # (1.0-4.8) k/uL Sodium 136 L (137-145) mmol/L Chloride 108 H (98-107) mmol/L Carbon Dioxide 20 L (22-30) mmol/L BUN 6 L (7-17) mg/dL Creatinine 0.44 L (0.52-1.04) mg/dL Glucose 103 H (74-99) mg/dL Calcium 7.4 L (8.4-10.2) mg/dL Crossmatch See Detail 08/23/22 Range/Units 04:39 WBC 11.0 H (3.8-10.6) k/uL RBC 3.46 L (3.80-5.40) m/uL Hgb 10.1 L (11.4-16.0) gm/dL Hct 30.8 L (34.0-46.0) % Neutrophils # 9.7 H (1.3-7.7) k/uL Lymphocytes # 0.7 L (1.0-4.8) k/uL Sodium (137-145) mmol/L Chloride (98-107) mmol/L Carbon Dioxide (22-30) mmol/L BUN (7-17) mg/dL Creatinine (0.52-1.04) mg/dL Glucose (74-99) mg/dL Calcium (8.4-10.2) mg/dL Crossmatch Microbiology - Last 24 Hours (Table) 08/21/22 13:30 Urine Culture - Preliminary Urine,Catheterized Gram Neg Bacilli Assessment and Plan Assessment: Status-post open reduction internal fixation right femoral shaft fracture on 08/22/22. Post-op day #1. Plan: - Strict non-weight bearing operative extremity. Keep knee immobilizer in place. - Ice operative extremity for swelling control. - Pain medications as needed. - Physical therapy for mobilization to chair. - May resume Eliquis for DVT prophylaxis. - Keep operative dressing in place. - Case management consulted for discharge planning.
--- NOTE | 2022-08-23 12:39 | P.PN ---
Subjective Progress Note Date: 08/23/22 Subjective: Patient seen and examined at bedside. No acute events overnight. Continuous to have right hip pain, but improved compared to yesterday Pertinent positives and negatives as discussed above, a complete review of systems was performed and all other systems are negative. Vitals Signs Reviewed. General: nontoxic, no distress, appears at stated age Derm: warm, dry, dressing clean, dry, intact Head: atraumatic, normocephalic, symmetric Eyes: EOMI, no lid lag, anicteric sclera Mouth: no lip lesion, mucus membranes moist Cardiovascular: S1S2 reg, tachycardic, no murmur Lungs: CTA bilateral, no rhonchi, no rales , no accessory muscle use Abdominal: soft, nontender to palpation, no guarding, no appreciable organomegaly Ext: Unable to move right lower extremity Neuro: CN II-XI grossly intact, no focal neuro deficits Psych: Alert, oriented, appropriate affect Data Reviewed Today: WBC 11, hemoglobin 10.1, sodium 136, creatinine 0.44 Assessment and Plan: Preoperative evaluation Acute right hip fracture status post ORIF History of prior right hip fracture status post VITA Acute blood loss anemia, status post 2 unit Urinary tract infection present on admission Sinus tachycardia History of DVT History of MS Osteoporosis -Surgery note reviewed, strict nonweightbearing on right lower extremity, knee immobilizer also applied -Sinus tachycardia likely in the setting of pain and blood loss anemia -Repeat CBC tomorrow -Sexton catheter in place, consider discontinuing prior to discharge -Continue ceftriaxone 1 g every 24 hours -Urine cultures growing gram-negative bacillus Thank you for allowing us to participate in the care of this pleasant patient. Do not hesitate to contact us with questions. Someone can be reached from the [facility] hospitalist group all hours of the day at [phone] or via [email or web address]. Objective - Vital Signs Vital signs: Vital Signs Temp 97.7 F 08/23/22 12:20 Pulse 103 H 08/23/22 12:20 Resp 17 08/23/22 12:20 BP 92/59 08/23/22 12:20 Pulse Ox 95 08/23/22 12:20 FiO2 Intake & Output 08/22/22 08/23/22 08/23/22 18:59 06:59 18:59 Intake Total 800 1770 Output Total 500 1800 Balance 300 -30 Weight 49.895 kg Intake: IV 800 1150 Blood Product 620 Rc As-1 Unit 310 [id number] Rc As-1 Unit 310 [id number] Output: Urine 500 1000 Estimated Blood Loss 800 Other: Voiding Method Indwelling Catheter Indwelling Catheter Indwelling Catheter - Labs CBC & Chem 7: 08/23/22 04:39 08/23/22 04:39 Labs: Abnormal Lab Results - Last 24 Hours (Table) 08/22/22 08/22/22 08/23/22 Range/Units 19:52 19:52 04:39 WBC (3.8-10.6) k/uL RBC 2.77 L (3.80-5.40) m/uL Hgb 8.0 L D (11.4-16.0) gm/dL Hct 24.8 L (34.0-46.0) % Neutrophils # (1.3-7.7) k/uL Lymphocytes # (1.0-4.8) k/uL Sodium 136 L (137-145) mmol/L Chloride 108 H (98-107) mmol/L Carbon Dioxide 20 L (22-30) mmol/L BUN 6 L (7-17) mg/dL Creatinine 0.44 L (0.52-1.04) mg/dL Glucose 103 H (74-99) mg/dL Calcium 7.4 L (8.4-10.2) mg/dL Crossmatch See Detail 08/23/22 Range/Units 04:39 WBC 11.0 H (3.8-10.6) k/uL RBC 3.46 L (3.80-5.40) m/uL Hgb 10.1 L (11.4-16.0) gm/dL Hct 30.8 L (34.0-46.0) % Neutrophils # 9.7 H (1.3-7.7) k/uL Lymphocytes # 0.7 L (1.0-4.8) k/uL Sodium (137-145) mmol/L Chloride (98-107) mmol/L Carbon Dioxide (22-30) mmol/L BUN (7-17) mg/dL Creatinine (0.52-1.04) mg/dL Glucose (74-99) mg/dL Calcium (8.4-10.2) mg/dL Crossmatch Microbiology - Last 24 Hours (Table) 08/21/22 13:30 Urine Culture - Preliminary Urine,Catheterized Gram Neg Bacilli
[2022-08-23] MEDS: CYCLOBENZAPRINE 5 MG TAB PO PRN (14:25)
[2022-08-23] MEDS: SODIUM CHLORIDE 0.9% 1,000 ML IV SCH (15:56)
[2022-08-23] MEDS: SENNOSIDES-DOCUSATE SODIUM 1 EACH TAB PO SCH (20:37)
[2022-08-24] MEDS: LACTATED RINGERS 1,000 ML IV SCH ×3 (03:20→15:33)
[2022-08-24] MEDS: HYDROmorphone 0.5 MG/0.5 ML SYRINGE IVP PRN (04:06)
[2022-08-24] MEDS: hydrOXYzine pamoate 25 MG CAP PO PRN (04:08)
[2022-08-24] MEDS ORDERED: SODIUM CHLORIDE 0.9% 1,000 ML IV ONE ×2 (04:18→19:37)
[2022-08-24 06:36] LABS: African American GFR (CKD) >90 (>60 ml/min/1.73 sqM); Anion Gap 4 mmol/L; Blood Urea Nitrogen 5 mg/dL (7-17); Calcium 7.1 mg/dL (8.4-10.2); Carbon Dioxide 24 mmol/L (22-30); Chloride 106 mmol/L (98-107); Glucose 103 mg/dL (74-99); Non-African American GFR(CKD) >90 (>60 ml/min/1.73 sqM); Potassium 3.3 mmol/L (3.5-5.1); Sodium 134 mmol/L (137-145)
[2022-08-24] MEDS ORDERED: POTASSIUM CHLORIDE ER 20 MEQ TAB.ER PO STA (08:24)
[2022-08-24 08:56] LABS: HCT 26.5 % (34.0-46.0); MCH 28.8 pg (25.0-35.0); MCHC 32.4 g/dL (31.0-37.0); MCV 88.6 fL (80.0-100.0); Mean Platelet Volume 10.6; Platelet Count 218 k/uL (150-450); RBC 2.99 m/uL (3.80-5.40); WBC 9.2 k/uL (3.8-10.6)
[2022-08-24 08:57] LABS: HGB 8.6 gm/dL (11.4-16.0)
[2022-08-24] MEDS: HYDROcodone/APAP 5-325MG 1 EACH TAB PO PRN ×2 (09:56→18:39)
[2022-08-24] MEDS: PANTOPRAZOLE 40 MG TABLET PO SCH (09:57)
[2022-08-24] MEDS: VENLAFAXINE HCL ER 75 MG CAP PO SCH (09:57)
[2022-08-24] MEDS: SODIUM CHLORIDE 0.9% 1,000 ML IV SCH (15:33)
--- NOTE | 2022-08-24 16:18 | P.PN ---
Subjective Progress Note Date: 08/24/22 This patient is a 72- year old female who is status-post open reduction internal fixation right femoral shaft fracture on 08/22/22. Today is post-operative day #2. Patient is examined bedside this morning. She is up to the bedside chair. Her pain is well controlled on oral [place]. No additional complaints. Vital signs stable. Objective - Vital Signs Vital signs: Vital Signs Temp 98.6 F 08/24/22 11:43 Pulse 95 08/24/22 11:43 Resp 17 08/24/22 11:43 BP 92/59 08/24/22 11:43 Pulse Ox 96 08/24/22 11:43 FiO2 Intake & Output 08/23/22 08/24/22 08/24/22 18:59 06:59 18:59 Output Total 600 375 300 Balance -600 -375 -300 Weight 49.895 kg Output: Urine 600 375 300 Uretheral (Sexton) 300 Other: Voiding Method Indwelling Catheter Indwelling Catheter Indwelling Catheter - Exam On examination, patient is sitting up in the bedside chair in no apparent distress. She is alert and orientated x3. On inspection of the right lower extremity, there is a knee immobilizer in place. Operative dressing clean, dry, intact. Small amount of dried blood distal dressing. The right foot is warm and well perfused with brisk capillary refill distally. Dorsalis pedis pulse easily palpable. Motor and sensory function is intact RLE. - Labs CBC & Chem 7: 08/24/22 05:48 08/24/22 05:48 Labs: Abnormal Lab Results - Last 24 Hours (Table) 08/24/22 08/24/22 Range/Units 05:48 05:48 RBC 2.99 L (3.80-5.40) m/uL Hgb 8.6 L D (11.4-16.0) gm/dL Hct 26.5 L (34.0-46.0) % Sodium 134 L (137-145) mmol/L Potassium 3.3 L (3.5-5.1) mmol/L BUN 5 L (7-17) mg/dL Creatinine 0.39 L (0.52-1.04) mg/dL Glucose 103 H (74-99) mg/dL Calcium 7.1 L (8.4-10.2) mg/dL Microbiology - Last 24 Hours (Table) 08/21/22 13:30 Urine Culture - Final Urine,Catheterized Klebsiella pneumoniae Assessment and Plan Assessment: Status-post open reduction internal fixation right femoral shaft fracture on 08/22/22. Post-op day #2. Plan: - Strict non-weight bearing operative extremity. Keep knee immobilizer in place. - Ice operative extremity for swelling control. - Pain medications as needed. - Physical therapy for mobilization to chair. - May resume Eliquis for DVT prophylaxis. - Keep operative dressing in place. - Case management consulted for discharge planning. Anticipate discharge to [facility] tomorrow if medically cleared.
[2022-08-24] MEDS ORDERED: methylPREDNISolone SOD SUCCI 125 MG/2 ML VIAL IV ONE (19:47)
[2022-08-24] MEDS ORDERED: FAMOTIDINE 20 MG/2 ML VIAL IV ONE (19:47)
[2022-08-24] MEDS ORDERED: diphenhydrAMINE 50 MG/ML 1 ML VIAL IVP ONE (19:47)
--- NOTE | 2022-08-24 19:48 | P.PN ---
Subjective Progress Note Date: 08/24/22 (delayed charting seen at 0915) Patient is a 72-year-old female with COPD, multiple sclerosis, osteoporosis, and prior DVT who presented with right femoral fracture after fall. Patient seen and examined at bedside. She states that pain is better controlled than yesterday. She denies any shortness of breath or chest discomfort at this time. She is eating a little. She is working with therapy and states things are getting easier each day. She is aware she needs to go to rehab. She had tachycardia and hypotension overnight Vital signs reviewed General: nontoxic, no distress, appears at stated age Cardiovascular: S1S2 reg, no murmur, positive posterior tibial pulse bilateral, Lungs: CTA bilateral, no rhonchi, no rales , no accessory muscle use Abdominal: soft, nontender to palpation, no guarding, no appreciable organomegaly Ext: no gross muscle atrophy, 2+ pedal edema right, no contractures, immobilizer in place right lower extremity Neuro: CN II-XI grossly intact, no focal neuro deficits Psych: Alert, oriented, appropriate affect Assessment/Plan : Patient is a 72-year-old female status post right midshaft femur fracture who underwent open reduction and internal fixation of right femoral shaft fracture on 08/22/22. Acute blood loss anemia status post 2 units of packed red blood cells -CBC relatively stable -No indication for transfusion at this time -Repeat CBC in a.m. Urinary tract infection, Klebsiella, present on admission -Sensitive to Rocephin. Continue with the planned course of 5 days Chronic: Osteoporosis Multiple sclerosis History of DVT Imaging: None new Data Review: TMax in the Last 24 hours 100.4. Vitals reviewed patient tachycardic at 100, respirations 17, blood pressure 98/66, O2 sats 97% on 2 L nasal cannula Data patient's fever CBC was ordered and was reviewed white blood cell count 9.2, hemoglobin 8.6, potassium 3.3, calcium 7.1 urine culture with klebsiella- sensitive to rocephin DVT prophylaxis: add lovenox This dictation was prepared using [employer] voice recognition software. Though every attempt is made to correct errors during dictation some may still exist. Objective - Vital Signs Vital signs: Vital Signs Temp 99.9 F H 08/24/22 19:28 Pulse 103 H 08/24/22 19:28 Resp 16 08/24/22 19:28 BP 82/48 08/24/22 19:28 Pulse Ox 93 L 08/24/22 19:28 FiO2 Intake & Output 08/24/22 08/24/22 08/25/22 06:59 18:59 06:59 Output Total 375 600 Balance -375 -600 Weight 49.895 kg Output: Urine 375 600 Uretheral (Sexton) 300 Other: Voiding Method Indwelling Catheter Indwelling Catheter - Labs CBC & Chem 7: 08/24/22 05:48 08/24/22 05:48 Labs: Abnormal Lab Results - Last 24 Hours (Table) 08/24/22 08/24/22 Range/Units 05:48 05:48 RBC 2.99 L (3.80-5.40) m/uL Hgb 8.6 L D (11.4-16.0) gm/dL Hct 26.5 L (34.0-46.0) % Sodium 134 L (137-145) mmol/L Potassium 3.3 L (3.5-5.1) mmol/L BUN 5 L (7-17) mg/dL Creatinine 0.39 L (0.52-1.04) mg/dL Glucose 103 H (74-99) mg/dL Calcium 7.1 L (8.4-10.2) mg/dL Microbiology - Last 24 Hours (Table) 08/21/22 13:30 Urine Culture - Final Urine,Catheterized Klebsiella pneumoniae
[2022-08-24] MEDS: SENNOSIDES-DOCUSATE SODIUM 1 EACH TAB PO SCH (20:05)
--- NOTE | 2022-08-24 20:07 | XR ---
EXAMINATION TYPE: XR chest 1V portable DATE OF EXAM: 08/24/2022 8:01 PM COMPARISON: Chest radiographs from 08/20/2022 TECHNIQUE: XR chest 1V portable Frontal view of the chest. CLINICAL INDICATION:Female, 72 years old with history of hypotension; FINDINGS: Lungs/Pleura: There is no evidence of pleural effusion, focal consolidation, or pneumothorax. Right midlung streaky atelectasis. Pulmonary vascularity: Unremarkable. Heart/mediastinum: Cardiomediastinal silhouette is unremarkable. Musculoskeletal: No acute osseous pathology. Unchanged probable bone infarct in the right proximal hu merus. IMPRESSION: No acute cardiopulmonary disease/process.
[2022-08-24 20:30] LABS: HCT 25.6 % (34.0-46.0); HGB 8.4 gm/dL (11.4-16.0); MCH 29.2 pg (25.0-35.0); MCHC 32.7 g/dL (31.0-37.0); MCV 89.5 fL (80.0-100.0); Mean Platelet Volume 8.7; Platelet Count 268 k/uL (150-450); RBC 2.86 m/uL (3.80-5.40); RDW 14.9 % (11.5-15.5); WBC 10.2 k/uL (3.8-10.6)
[2022-08-25] MEDS: LACTATED RINGERS 1,000 ML IV SCH ×2 (05:56→12:58)
[2022-08-25 06:21] LABS: Appearance,Urine Clear (Clear); Bilirubin,Urine Negative (Negative); Blood,Urine Negative (Negative); Color,Urine Yellow; Glucose,Urine (UA) Negative (Negative); Ketones,Urine Negative (Negative); Leukocyte Esterase,Urine Negative (Negative); Nitrite,Urine Negative (Negative); Protein,Urine Trace (Negative); Specific Gravity,Urine 1.016 (1.001-1.035); Urobilinogen,Urine <2.0 mg/dL (<2.0)
[2022-08-25 07:14] LABS: HCT 26.5 % (34.0-46.0); HGB 8.5 gm/dL (11.4-16.0); Hypochromasia Slight; MCH 29.5 pg (25.0-35.0); MCHC 32.1 g/dL (31.0-37.0); MCV 91.9 fL (80.0-100.0); Mean Platelet Volume 8.5; Platelet Count 252 k/uL (150-450); RBC 2.88 m/uL (3.80-5.40); RDW 15.1 % (11.5-15.5); WBC 5.7 k/uL (3.8-10.6)
[2022-08-25 07:46] VITALS: RESP 17
[2022-08-25 08:09] LABS: African American GFR (CKD) >90 (>60 ml/min/1.73 sqM); Anion Gap 5 mmol/L; Blood Urea Nitrogen 6 mg/dL (7-17); Calcium 7.7 mg/dL (8.4-10.2); Carbon Dioxide 25 mmol/L (22-30); Chloride 106 mmol/L (98-107); Glucose 160 mg/dL (74-99); Non-African American GFR(CKD) >90 (>60 ml/min/1.73 sqM); Potassium 3.9 mmol/L (3.5-5.1); Sodium 136 mmol/L (137-145)
[2022-08-25] MEDS ORDERED: ENOXAPARIN 30 MG/0.3 ML SYRINGE SQ SCH (09:00)
[2022-08-25] MEDS ORDERED: APIXABAN 2.5 MG TABLET PO SCH (09:00)
--- NOTE | 2022-08-25 09:00 | US ---
EXAMINATION TYPE: US venous doppler duplex LE BI DATE OF EXAM: 08/25/2022 8:32 AM COMPARISON: NONE CLINICAL INDICATION: Female, 72 years old with history of swelling; Recent right femur fracture with surgical repair, bilateral leg swelling, no h/o dvt SIDE PERFORMED: Bilateral TECHNIQUE: The lower extremity deep venous system is examined utilizing real time linear array sonog flavia with graded compression, doppler sonography and color-flow sonography. VESSELS IMAGED: Common Femoral Vein Deep Femoral Vein Greater Saphenous Vein * Femoral Vein Popliteal Vein Small Saphenous Vein * Proximal Calf Veins (* superficial vessels) Right Leg: Negative for DVT - limited imaging due to swelling and lack of mobility with leg, good co benton flow seen throughout leg Left Leg: Negative for DVT, Grayscale, color doppler, spectral doppler imaging performed of the deep veins of the lower extremities. There is normal flow, compressibility, vascular waveforms. IMPRESSION: Subcutis edema No evidence for deep vein thrombosis. Limited right leg.
[2022-08-25] MEDS: VENLAFAXINE HCL ER 75 MG CAP PO SCH (09:07)
[2022-08-25] MEDS: PANTOPRAZOLE 40 MG TABLET PO SCH (09:07)
--- NOTE | 2022-08-25 10:29 | P.DS ---
Providers Date of admission: 08/20/22 15:46 Expected date of discharge: 08/25/22 Attending physician: Gabino Jarrett Consults: 08/20/22 15:44 Consult Physician Routine Consulting Provider: Deanna Singh Consult Reason/Comments: surgical consult Do you want consulting provider notified?: Yes Primary care physician: Stated None Hospital Course: This patient a 72- year old female who underwent a right total hip arthroplasty in January 2022. Patient sustained a fall on 08/20/22 that resulted in a right midshaft femur fracture. Patient was admitted under the care of Dr. Jarrett for surgical intervention with a consult placed to internal medicine for preoperative medical evaluation. Patient underwent an open reduction internal fixation of right femoral shaft fracture on 08/22/22. The procedure is performed without complication or sequelae. The patient was transfused 2 units of PRBCs the day of surgery. Patient's hemoglobin is stable at 8.5 date of discharge. Vital signs are stable. Today is postoperative day #3. The patient is examined bedside this morning with Dr. Jarrett. She states the pain in her right leg is well-controlled at this time. She overall feels well and was ready to discharge to rehab today. There are no complaints or concerns the day of discharge. On examination, the patient is sitting up in bed in no apparent distress. She is alert and oriented 3. On inspection of the right lower extremity, there is a knee immobilizer in place. The knee immobilizer is opened and reveals a clean, dry, intact surgical dressing with a small amount of dried blood. There is mild swelling of the thigh, the thigh is soft and compressible. Motor and sensory function is intact of the right lower extremity. The right lower extremity is warm and well-perfused. The right dorsalis pedis pulses easily palpable. Calf is nontender. Patient is discharged to rehab today in good condition, pending medical clearance. She'll follow-up in [facility] Please see med rec for accurate list of discharge medications. Patient Condition at Discharge: Fair Plan - Discharge Summary Discharge Rx Participant: Yes New Discharge Prescriptions: New Cephalexin [Keflex] 500 mg PO Q12HR 2 Days #4 cap Docusate [Colace] 100 mg PO BID #60 capsule HYDROcodone/APAP 5-325MG [[place] 5-325] 1 - 2 tab PO Q6HR PRN 7 Days #30 tab PRN Reason: Pain Continue Apixaban [Eliquis] 2.5 mg PO BID Omeprazole 40 mg PO DAILY 30 Days #30 cap Venlafaxine HCl [Effexor XR] 75 mg PO DAILY No Action Cyclobenzaprine [Flexeril] 5 mg PO BID PRN PRN Reason: Muscle Spasm Alendronate Sodium [Fosamax] 70 mg PO GUZMAN Acetaminophen Tab [Tylenol Tab] 1,000 mg PO Q6H PRN PRN Reason: Pain Discharge Medication List Apixaban [Eliquis] 2.5 mg PO BID 12/28/21 [History] Cyclobenzaprine [Flexeril] 5 mg PO BID PRN 01/22/22 [History] Omeprazole 40 mg PO DAILY 30 Days #30 cap 01/26/22 [Rx] Acetaminophen Tab [Tylenol Tab] 1,000 mg PO Q6H PRN 08/20/22 [History] Alendronate Sodium [Fosamax] 70 mg PO GUZMAN 08/20/22 [History] Venlafaxine HCl [Effexor XR] 75 mg PO DAILY 08/20/22 [History] Cephalexin [Keflex] 500 mg PO Q12HR 2 Days #4 cap 08/24/22 [Rx] Docusate [Colace] 100 mg PO BID #60 capsule 08/25/22 [Rx] HYDROcodone/APAP 5-325MG [[place] 5-325] 1 - 2 tab PO Q6HR PRN 7 Days #30 tab 08/25/22 [Rx] Follow up Appointment(s)/Referral(s): None,Stated [Primary Care Provider] - 1-2 days Gabino Jarrett MD [Medical Doctor] - 2 Weeks Activity/Diet/Wound Care/Special Instructions: Strict non-weight bearing operating extremity. Keep knee immobilizer on. Keep operative dressings in place. May shower over dressing. Take pain medication as needed. Resume Eliquis for blood clot prevention. Follow-up at [facility] in two weeks. Call the office with any questions or concerns, Activity: [] Diet: [] Wound Care: [] Special Instructions: CBC in 1 week DX: anemia Discharge Disposition: TRANSFER TO SNF/ECF
--- NOTE | 2022-08-25 10:42 | P.PN ---
Subjective Progress Note Date: 08/25/22 Patient is doing much better this morning. The pain in her thigh is improved. She has been strictly nonweightbearing. She has no other complaints and denies chest pain or shortness of breath. Objective - Vital Signs Vital signs: Vital Signs Temp 98.2 F 08/25/22 07:44 Pulse 88 08/25/22 07:44 Resp 17 08/25/22 07:44 BP 108/70 08/25/22 08:31 Pulse Ox 92 L 08/25/22 08:08 FiO2 Intake & Output 08/24/22 08/25/22 08/25/22 18:59 06:59 18:59 Intake Total 1599 300 Output Total 600 520 Balance -600 1079 300 Weight 49.895 kg Intake: Intake, IV Titration 1239 Amount Sodium Chloride 0.9% 1, 240 000 ml @ 20 mls/hr IV . Q24H [facility] Rx#:[id number] Sodium Chloride 0.9% 1, 999 000 ml @ 999 mls/hr IV . Q1H1M [facility] Rx#:[id number] Oral 360 300 Output: Urine 600 520 Uretheral ([place]) 300 Other: Voiding Method Indwelling Catheter Incontinent - Labs CBC & Chem 7: 08/25/22 06:51 08/25/22 06:51 Labs: Abnormal Lab Results - Last 24 Hours (Table) 08/24/22 08/25/22 08/25/22 Range/Units 20:12 05:40 06:51 RBC 2.86 L 2.88 L (3.80-5.40) m/uL Hgb 8.4 L 8.5 L (11.4-16.0) gm/dL Hct 25.6 L 26.5 L (34.0-46.0) % Sodium (137-145) mmol/L BUN (7-17) mg/dL Creatinine (0.52-1.04) mg/dL Glucose (74-99) mg/dL Calcium (8.4-10.2) mg/dL Urine Protein Trace H (Negative) 08/25/22 Range/Units 06:51 RBC (3.80-5.40) m/uL Hgb (11.4-16.0) gm/dL Hct (34.0-46.0) % Sodium 136 L (137-145) mmol/L BUN 6 L (7-17) mg/dL Creatinine 0.33 L (0.52-1.04) mg/dL Glucose 160 H (74-99) mg/dL Calcium 7.7 L (8.4-10.2) mg/dL Urine Protein (Negative) Assessment and Plan Assessment: Postoperative day #3 status post open reduction internal fixation right femoral shaft fracture Plan: 1. Strict nonweightbearing right lower extremity, knee immobilizer at all times except for hygiene 2. Leave surgical dressing in place 3. DVT prophylaxis with Eliquis 4. Appreciate perioperative medical assistance from internal medicine 5. Dispo: The patient is going to discharge to rehab today pending medical clearance. She is okay to discharge from orthopedic standpoint.
[2022-08-25] MEDS: SODIUM CHLORIDE 0.9% 1,000 ML IV SCH (14:28)
[2022-08-25 14:29] VITALS: BP 98/57; PULSE 107; TEMP 98.5
--- NOTE | 2022-08-25 15:59 | P.PN ---
Subjective Progress Note Date: 08/25/22 (delayed charting seen at 0810) Patient is a 72-year-old female with COPD, multiple sclerosis, osteoporosis, and prior DVT who presented with right femoral fracture after fall. Patient seen and examined at bedside. She has been asymptomatic every time her blood pressure has been low. She states it runs on the lower end normally. She believes it is even lower due to her not being up and ambulating as much is normal and being in the postoperative state. She adamantly denies any chest pain or shortness of breath. She had tachycardia and hypotension overnight, which responded to IV fluid bolus. Vital signs reviewed General: nontoxic, no distress, appears at stated age Cardiovascular: S1S2 reg, no murmur, positive posterior tibial pulse bilateral, Lungs: CTA bilateral, no rhonchi, no rales , no accessory muscle use Abdominal: soft, nontender to palpation, no guarding, no appreciable organomegaly Ext: no gross muscle atrophy, 2+ pedal edema right, no contractures, immobilizer in place right lower extremity Neuro: CN II-XI grossly intact, no focal neuro deficits Psych: Alert, oriented, appropriate affect Assessment/Plan : Patient is a 72-year-old female status post right midshaft femur fracture who underwent open reduction and internal fixation of right femoral shaft fracture on 08/22/22. Urinary tract infection, Klebsiella, present on admission -Sensitive to Rocephin. Patient allergic to amoxicillin and oral antibiotic transition from prior order of keflex to rocpehin. Spoke with medical receptionist medical assistant at [facility], nursing not available, new ordered faxed to [phone] to discontinue keflex and replace with bactrim DS 1 tab twice daily for 2 days. Acute blood loss anemia status post 2 units of packed red blood cells -CBC relatively stable -No indication for transfusion at this time -Repeat CBC in a.m. Hypotension - patient typically with low normal BP, CXR negative, on appropriate ABX for urine culture, asymptomatic, responded to fluids. Instructions added to D/C instructions regarding BP readings. RLE edeam - likely from fracture - venous doppler negative for DVT. Chronic: Osteoporosis Multiple sclerosis History of DVT Imaging: B/L lower Extremity venous Dopplers subcutaneous edema without evidence of DVT, limited in the right leg due to swelling Data Review: Vitals temperature 98.5, pulse 88, respirations 17, blood pressure 100/64, O2 sat 92% on room air Labs reviewed hemoglobin stable at 8.5, sodium 136 calcium 7.7 DVT prophylaxis: add lovenox This dictation was prepared using [employer] voice recognition software. Though every attempt is made to correct errors during dictation some may still exist. Objective - Vital Signs Vital signs: Vital Signs Temp 98.5 F 08/25/22 14:00 Pulse 107 H 08/25/22 14:00 Resp 17 08/25/22 14:00 BP 98/57 08/25/22 14:00 Pulse Ox 95 08/25/22 14:00 FiO2 Intake & Output 08/24/22 08/25/22 08/25/22 18:59 06:59 18:59 Intake Total 1599 658 Output Total 600 520 200 Balance -600 1079 458 Weight 49.895 kg Intake: Intake, IV Titration 1239 Amount Sodium Chloride 0.9% 1, 240 000 ml @ 20 mls/hr IV . Q24H [facility] Rx#:[id number] Sodium Chloride 0.9% 1, 999 000 ml @ 999 mls/hr IV . Q1H1M [facility] Rx#:[id number] Oral 360 658 Output: Urine 600 520 200 Uretheral ([place]) 300 Other: Voiding Method Indwelling Catheter Incontinent - Labs CBC & Chem 7: 08/25/22 06:51 08/25/22 06:51 Labs: Abnormal Lab Results - Last 24 Hours (Table) 08/24/22 08/25/22 08/25/22 Range/Units 20:12 05:40 06:51 RBC 2.86 L 2.88 L (3.80-5.40) m/uL Hgb 8.4 L 8.5 L (11.4-16.0) gm/dL Hct 25.6 L 26.5 L (34.0-46.0) % Sodium (137-145) mmol/L BUN (7-17) mg/dL Creatinine (0.52-1.04) mg/dL Glucose (74-99) mg/dL Calcium (8.4-10.2) mg/dL Urine Protein Trace H (Negative) 08/25/22 Range/Units 06:51 RBC (3.80-5.40) m/uL Hgb (11.4-16.0) gm/dL Hct (34.0-46.0) % Sodium 136 L (137-145) mmol/L BUN 6 L (7-17) mg/dL Creatinine 0.33 L (0.52-1.04) mg/dL Glucose 160 H (74-99) mg/dL Calcium 7.7 L (8.4-10.2) mg/dL Urine Protein (Negative)
== END 2022-08-25 14:46 | DRG 481 ==
LOC: EC 13:55 → 4SSUR 15:46 → 5NMEDONC 08-21 15:26
PROVIDERS: ADMIT Orthopaedic Surgery; ATTEND Orthopaedic Surgery
PROC: 30233N1 Transfusion of Nonautologous Red Blood Cells into Peripheral Vein, Percutaneous Approach (ICD-10-PCS; 2022-08-22)
PROC: 0QS804Z Reposition Right Femoral Shaft with Internal Fixation Device, Open Approach (ICD-10-PCS; principal; 2022-08-22 07:30)
DX: S72.351A Displaced comminuted fracture of shaft of right femur, initial encounter for closed fracture (principal); D62 Acute posthemorrhagic anemia; M97.01XA Periprosthetic fracture around internal prosthetic right hip joint, initial encounter; N39.0 Urinary tract infection, site not specified; F03.90 Unspecified dementia, unspecified severity, without behavioral disturbance, psychotic disturbance, mood disturbance, and anxiety; I95.9 Hypotension, unspecified; J44.9 Chronic obstructive pulmonary disease, unspecified; G35 Multiple sclerosis; M81.0 Age-related osteoporosis without current pathological fracture; B96.1 Klebsiella pneumoniae [K. pneumoniae] as the cause of diseases classified elsewhere; M85.88 Other specified disorders of bone density and structure, other site; R00.0 Tachycardia, unspecified; W01.0XXA Fall on same level from slipping, tripping and stumbling without subsequent striking against object, initial encounter; Z96.641 Presence of right artificial hip joint; Z91.81 History of falling; Z87.891 Personal history of nicotine dependence; Z87.81 Personal history of (healed) traumatic fracture; Z86.718 Personal history of other venous thrombosis and embolism; Z88.0 Allergy status to penicillin; Z91.041 Radiographic dye allergy status; Z88.8 Allergy status to other drugs, medicaments and biological substances; Z79.899 Other long term (current) drug therapy; Z79.83 Long term (current) use of bisphosphonates; Z79.01 Long term (current) use of anticoagulants
CPT/HCPCS: 27502; 36415; 51702; 71045; 80048; 81001; 81003; 85025; 85027; 85610; 85730; 86850; 86900; 86901; 86920; 87077; 87086; 87186; 93005; 93970; 94760; 96361; 96365; 96375; 96376; 99152; 99285

== ENCOUNTER → 2022-10-08 | Outpatient (CLI) | payer MEDICARE ==
--- NOTE | 2022-10-08 16:05 | US ---
EXAMINATION TYPE: US venous doppler duplex LE RT DATE OF EXAM: 10/08/2022 2:52 PM COMPARISON: 08/25/2022 CLINICAL INDICATION: Female, 72 years old with history of S72.351D DISPL COMMNT FX SHAFT OF R FEMR, 7 THD RLE; edema SIDE PERFORMED: Right TECHNIQUE: The lower extremity deep venous system is examined utilizing real time linear array sonog flavia with graded compression, doppler sonography and color-flow sonography. VESSELS IMAGED: Common Femoral Vein Deep Femoral Vein Greater Saphenous Vein * Femoral Vein Popliteal Vein Small Saphenous Vein * Proximal Calf Veins (* superficial vessels) Right Leg: Negative for DVT IMPRESSION: Grayscale, color doppler, spectral doppler imaging performed of the deep veins of the lo wer extremities. There is normal flow, compressibility, vascular waveforms.
== END | disposition home or self-care (01) ==
LOC: RADUSWWP 14:29
PROVIDERS: ATTEND Orthopaedic Surgery
DX: S72.351D Displaced comminuted fracture of shaft of right femur, subsequent encounter for closed fracture with routine healing (principal)

== ENCOUNTER 2022-12-29 19:32 | Emergency (ER) | payer MEDICARE ==
[2022-12-29 19:58] VITALS: TEMP 99.1
[2022-12-29] MEDS ORDERED: HYDROcodone/APAP 7.5-325MG 1 EACH TAB PO ONE (20:02)
--- NOTE | 2022-12-29 20:09 | ED ---
Lower Extremity Injury HPI - General Chief Complaint: Extremity Injury, Lower Stated Complaint: Fall-left leg injury Time Seen by Provider: 12/29/22 19:45 Source: patient, family, RN notes reviewed Mode of arrival: wheelchair Limitations: no limitations - History of Present Illness Initial Comments: This is a 72-year-old female who presents to the emergency department for left ankle pain. States that she rolled out of bed this morning, injuring her left ankle. She has since been unable to put pressure on the left leg. She is essentially wheelchair-bound anyway due to a right femoral fracture. This was repaired, however she is still having trouble ambulating. She is however usually able to put pressure on the left leg, which she has been unable to do since the injury this morning. She is on Eliquis. Denies hitting her head or sustaining any other injuries. She took Tylenol with no relief in symptoms. Patient's family then called and they were concerned that she has a poor memory and were worried that she may have sustained more injuries than she is saying. Because of this, they requested x-rays of the entirety of her bilateral LEs. Complaint: ankle injury - Related Data Home Medications Medication Instructions Recorded Confirmed Apixaban [Eliquis] 2.5 mg PO BID 12/28/21 08/20/22 Venlafaxine HCl [Effexor XR] 75 mg PO DAILY 08/20/22 08/20/22 Previous Rx's Medication Instructions Recorded Omeprazole 40 mg PO DAILY 30 Days #30 cap 01/26/22 Cephalexin [Keflex] 500 mg PO Q12HR 2 Days #4 cap 08/24/22 Docusate [Colace] 100 mg PO BID #60 capsule 08/25/22 HYDROcodone/APAP 5-325MG [[place] 1 - 2 tab PO Q6HR PRN 7 Days #30 08/25/22 5-325] tab Allergies Allergy/AdvReac Type Severity Reaction Status Date / Time amoxicillin Allergy Rash/Hives Verified 12/29/22 19:42 Iodinated Contrast Media Allergy difficulty Verified 12/29/22 19:42 breathing heparin AdvReac Nose & Verified 12/29/22 19:42 gums bleeding Review of Systems ROS Statement: Those systems with pertinent positive or pertinent negative responses have been documented in the HPI. ROS Other: All systems not noted in ROS Statement are negative. Past Medical History Past Medical History: COPD, Deep Vein Thrombosis (DVT), Memory Impairment, Neurologic Disorder, Pneumonia Additional Past Medical History / Comment(s): multiple sclerosis, Osteoporosis, Hx of fall with fx right femur fx with surgery & has been at [facility] since then., bozena lift used to transfer. hx fall 01/01/22, [place] History of Any Multi-Drug Resistant Organisms: None Reported Past Surgical History: Orthopedic Surgery Additional Past Surgical History / Comment(s): right hip surgery, venous wall stent right and left leg by Dr Gaytan, Breast bx, colonoscopy., cataracts Past Anesthesia/Blood Transfusion Reactions: No Reported Reaction Past Psychological History: No Psychological Hx Reported Smoking Status: Former smoker Past Alcohol Use History: None Reported Past Drug Use History: None Reported - Past Family History Father Family Medical History: Hypertension, Rheumatoid Arthritis (RA) General Exam Limitations: no limitations General appearance: alert, in no apparent distress Head exam: Present: atraumatic, normocephalic, normal inspection Respiratory exam: Present: normal lung sounds bilaterally. Absent: respiratory distress, wheezes, rales, rhonchi, stridor Cardiovascular Exam: Present: regular rate, normal rhythm, normal heart sounds. Absent: systolic murmur, diastolic murmur, rubs, gallop, clicks Extremities exam: Present: other (Tenderness to palpation over the anterior distal most aspect of the left ankle. No swelling or ecchymosis. Range of leti on is limited by pain. 2+ DP and PT pulses. Capillary refill less than 1 second.) Neurological exam: Present: alert, oriented X3, CN II-XII intact Psychiatric exam: Present: normal affect, normal mood Skin exam: Present: warm, dry, intact, normal color. Absent: rash Course Vital Signs 12/29/22 12/29/22 19:39 22:40 Temperature 99.1 F Pulse Rate 104 H 98 Respiratory 18 16 Rate Blood Pressure 120/77 108/73 O2 Sat by Pulse 94 L 93 L Oximetry Medical Decision Making - Medical Decision Making This is a 72-year-old female who presents to the emergency department for a left ankle injury. Was pt. sent in by a medical professional or institution? @ -No Did you speak to anyone other than the patient for history? @ -Her family provided the information that she has a poor memory and they were concerned about her sustaining more injuries than she was discussing. Did you review nursing and triage notes? @ -Yes, and I agree, it is accurate with regards to the patient's symptoms. Were old charts reviewed? @ -No Differential Diagnosis? @ -Differential Musculoskeletal: Muscular strain, contusion, ligament sprain, fracture, arthritis, septic arthritis, bursitis, cellulitis, muscle spasm, nerve compression, DVT, arterial occlusion, herpes zoster, electrolyte abnormality, tumor.... This is not meant to be in all inclusive list EKG interpreted by me (3pts min.)? @ -Not obtained X-rays interpreted by me (1pt min.)? @ -X-ray of the left foot and ankle obtained. My interpretation identifies no acute fractures. X-ray of the bilateral tib-fib and femurs obtained as well. My interpretation of those images also revealed no acute fractures. CT interpreted by me (1pt min.)? @ -Not obtained U/S interpreted by me (1pt. min.)? @ -Not obtained What testing was considered but not performed? (CT, X-rays, U/S, labs)? Why? @ -None What meds were considered but not given? Why? @ -None Did you discuss the management of the patient with other professionals? @ -No Did you reconcile home meds? @ -No Was smoking cessation discussed for >3mins.? @ -No Was critical care preformed (if so, how long)? @ -No Were there social determinants of health that impacted care today? How? (Homelessness, low income, unemployed, alcoholism, drug addiction, transportation, low edu. Level, literacy, decrease access to med. care, alf, rehab)? @ -No Was there de-escalation of care discussed even if they declined? (Discuss DNR or withdrawal of care, Hospice)? @ -No What co-morbidities impacted this encounter? (DM, HTN, Smoking, COPD, CAD, Cancer, CVA, Hep., AIDS, mental health diagnosis, sleep apnea, morbid obesity)? @ -Memory impairment, osteoarthritis Was patient admitted / discharged? @ -Discharged. We initially obtained an x-ray of the left foot and ankle, revealing soft tissue swelling without evidence of any acute fractures. Given her family's concern, we did also obtain x-rays of the bilateral lower extremities, including bilateral tib-fibs and bilateral femurs. These revealed no acute processes either. Her pain was well controlled in the emergency department and she was discharged home in stable condition with instruction to follow up with her primary care provider. She'll continue taking Tylenol as needed for pain relief. Undiagnosed new problem with uncertain prognosis? @ -None Drug Therapy requiring intensive monitoring for toxicity (Heparin, Nitro, Insulin, Cardizem)? @ -None Were any procedures done? @ -None Diagnosis/symptom? @ -Left ankle sprain Acute, or Chronic, or Acute on Chronic? @ -Acute Uncomplicated (without systemic symptoms) or Complicated (systemic symptoms)? @ -Uncomplicated Side effects of treatment? @ -None Exacerbation, Progression, or Severe Exacerbation] @ -Not applicable Poses a threat to life or bodily function? @ -No Return precautions reviewed in depth, the patient is instructed to return to the emergency department with any new, worsening, or concerning symptoms. Patient verbalized understanding. This case was discussed in detail with the attending ED physician, Dr. Amaya. Presentation, findings, and treatment plan discussed in detail as well. - Radiology Data Radiology results: report reviewed, image reviewed Disposition Clinical Impression: Injury of left leg Disposition: HOME SELF-CARE Instructions (If sedation given, give patient instructions): Ankle Sprain (ED) Additional Instructions: Return to the emergency department with any new, worsening, or concerning symptoms. You can take Tylenol up to every 6 hours as needed for pain relief. Follow up with your primary care provider in 1-2 days. Is patient prescribed a controlled substance at d/c from ED?: No Referrals: Ganga Sanchez PAC [Primary Care Provider] - 1-2 days
--- NOTE | 2022-12-29 21:03 | XR ---
EXAMINATION TYPE: XR tibia fibula bilateral DATE OF EXAM: 12/29/2022 8:49 PM CLINICAL INDICATION:Female, 72 years old with history of Pain, won't bear weight; [facility] COMPARISON: None TECHNIQUE: XR tibia fibula bilateral; tibia/fibula was examined in AP and lateral projections. FINDINGS: No evidence of any acute osseous pathology, joint dislocation, or soft tissue swelling is n oted. Fixation hardware in the right distal femur with hardware intact. IMPRESSION: No evidence of acute fracture.
--- NOTE | 2022-12-29 21:06 | XR ---
EXAMINATION TYPE: XR femur bilateral DATE OF EXAM: 12/29/2022 8:49 PM CLINICAL INDICATION:Female, 72 years old with history of Pain, won't bear weight; [facility] COMPARISON: None TECHNIQUE: Bilateral femurs were examined in Frontal and lateral projections. FINDINGS: No evidence of acute osseous pathology, joint dislocation, or soft tissue swelling fixatio n hardware in the right hip and right proximal femur from prior fractures. No evidence for hardware f ailure. IMPRESSION: 1. No acute osseous pathology. 2. Fixation hardware in the right lower extremity appears intact.
--- NOTE | 2022-12-29 21:07 | XR ---
EXAMINATION TYPE: XR ankle complete LT, XR foot complete LT DATE OF EXAM: 12/29/2022 8:49 PM CLINICAL INDICATION:Female, 72 years old with history of Pain, injury; [facility] COMPARISON: None TECHNIQUE: XR ankle complete LT, XR foot complete LT; ankle and foot were imaged in frontal, lateral and oblique projections. FINDINGS: There is no evidence of acute osseous pathology. The joint spaces are well-preserved without evidenc e of subluxation or dislocation. Kager's fat pad is intact. Mild soft tissue swelling around the ankl e. No radiopaque foreign bodies are identified. IMPRESSION: 1. No evidence of acute fracture. 2. Subcutaneous swelling around the ankle could be secondary to systemic processes versus acute soft tissue injury.
[2022-12-29] MEDS ORDERED: ACET/COD 300 MG/30 MG STARTER PACK 6 TAB BTL PO STA (21:26)
[2022-12-29 22:51] VITALS: BP 108/73; PULSE 98; RESP 16
== END 2022-12-29 22:45 | disposition home or self-care (01) ==
LOC: EC 19:32
DX: S93.402A Sprain of unspecified ligament of left ankle, initial encounter (principal); J44.9 Chronic obstructive pulmonary disease, unspecified; Z87.891 Personal history of nicotine dependence; Z88.8 Allergy status to other drugs, medicaments and biological substances; Z88.0 Allergy status to penicillin; W06.XXXA Fall from bed, initial encounter
CPT/HCPCS: 99283

== ENCOUNTER → 2023-06-01 | Outpatient (CLI) | payer MEDICARE ==
--- NOTE | 2023-06-05 15:55 | MR ---
EXAMINATION TYPE: MR tspine/lspine wo con DATE OF EXAM: 06/01/2023 2:51 PM CLINICAL INDICATION:Female, 72 years old with history of M48.54XA COLLAPSED VERTEBRA, NEC, THORACIC R EGION,; PHH, COMPARISON: CT was 09/29/2018 TECHNIQUE: Multi planar, multi sequence imaging was performed utilizing: T1-weighted, T2-weighted, a nd turbo inversion recovery imaging of the thoracic and lumbar spine. IV Contrast: cc . None. FINDINGS: Alignment: The thoracic and lumbar vertebral bodies have preserved heights and increased kyphotic ali gnment originating at the T7-T8 levels due to compression deformities. Cord: The conus medullaris and the distal spinal cord appear unremarkable with regards to their signa l intensity and morphology. Bones/Discs: Multilevel degeneration changes throughout the spine with osteophyte formation disc spac e narrowing and facet joint arthropathy. There is compression deformities of T7, T8 , T12, L1, L2, L3 , L4 and to a lesser extent L5. There is curvilinear lucency at the superior endplate of L1 with asso ciated bony edema compatible with acute/subacute fracture. There is 25% height loss and minimal retro pulsion up to 3 mm. No significant spinal canal stenosis. The remainder of the compression from these do not demonstrate bony edema. THORACIC: Degeneration changes without evidence for significant spinal canal or neural foraminal sten osis. LUMBAR: T12-L1: No evidence of significant spinal canal stenosis or neural foraminal stenosis. L1-L2: No evidence of significant spinal canal stenosis or neural foraminal stenosis. L2-L3: Disc bulge and facet joint arthropathy result in mild spinal canal and moderate bilateral neur al foraminal stenosis. L3-L4: Disc bulge and facet joint arthropathy result in mild spinal canal and moderate bilateral neur al foraminal stenosis. L4-L5: Disc bulge and facet joint arthropathy result in mild spinal canal and mild to moderate bilate ral neural foraminal stenosis. L5-S1: No evidence of significant spinal canal stenosis. Facet joint arthropathy moderate bilateral n eural foraminal stenosis. Other findings: Simple appearing high T2 right renal cyst. Low signal suspected fibroid changes with in the uterus. Right ovarian cyst which appears simple measuring 10 mm. IMPRESSION: 1. Acute/subacute fracture of the L1 vertebrae with 3 mm retropulsion an 25% height loss. No evidenc e for significant spinal canal stenosis. Additional multilevel compression deformities throughout the spine with out bony edema. 2. Multilevel degeneration changes to the spine are moderate to severe with varying degrees of neura l foraminal stenosis. The spinal canal is relatively patent throughout the spine.
== END | disposition home or self-care (01) ==
LOC: RADMRIMAIN 13:36
PROVIDERS: ATTEND Family Medicine
DX: M99.73 Connective tissue and disc stenosis of intervertebral foramina of lumbar region (principal); M48.54XA Collapsed vertebra, not elsewhere classified, thoracic region, initial encounter for fracture; M48.56XA Collapsed vertebra, not elsewhere classified, lumbar region, initial encounter for fracture; M47.814 Spondylosis without myelopathy or radiculopathy, thoracic region; M47.817 Spondylosis without myelopathy or radiculopathy, lumbosacral region
CPT/HCPCS: 72146; 72148

== ENCOUNTER → 2024-09-08 | Outpatient (CLI) | payer MEDICARE ==
--- NOTE | 2024-09-09 07:47 | MM ---
Reason for Exam: Screening (asymptomatic). Last mammogram was performed 5 year(s) and 11 month(s) ago. Patient History: Menarche at age 14. Patient has no children. Postmenopausal. Risk Values: Naomi 5 year model risk: 2.0%. NCI Lifetime model risk: 5.1%. Prior Study Comparison: 09/19/2018 Bilateral Screening Mammogram, Unknown. 10/13/2018 Bilateral Screening Mammogram, Unknown. Tissue Density: The breasts are heterogeneously dense, which may obscure small masses. Findings: Analyzed By CAD. The central upper inner quadrant global asymmetry in the right breast remains unchanged. Additional areas of asymmetric density are also unchanged. A small low axillary tail lymph node noted on either side. There is no suspicious group of microcalcifications or new suspicious mass in either breast. Overall Assessment: Benign, BI-RAD 2 Management: Screening Mammogram of both breasts in 1 year. Patient should continue monthly self-breast exams. A clinical breast exam by your physician is recommended on an annual basis. This exam should not preclude additional follow-up of suspicious palpable abnormalities. Note on Naomi scores and lifetime risk: 1. A Naomi score greater than 3% is considered moderate risk. If this is the case, consider specialist referral to assess eligibility for a risk reducing agent. 2. If overall lifetime risk for the development of breast cancer is 20% or higher, the patient may qualify for future screening with alternating mammogram and breast MRI. [facility], , 09/09/2024 7:44 AM. Electronically signed and approved by: Angel Whiteside M.D. Radiologist
== END | disposition home or self-care (01) ==
LOC: RADMAMWWP 14:45
PROVIDERS: ATTEND Family Medicine
DX: Z12.31 Encounter for screening mammogram for malignant neoplasm of breast (principal); R92.333 Mammographic heterogeneous density, bilateral breasts; Z78.0 Asymptomatic menopausal state
CPT/HCPCS: 77063; 77067